=== PATIENT | male | born 1960 | race African-American/Black ===

== ENCOUNTER 2018-09-27 08:37 | Observation (INO) ==
[2018-09-27] MEDS ORDERED: Naloxone 0.4 MG/ML INJ IVP PRN (10:47)
[2018-09-27] MEDS ORDERED: Acetaminophen 325 MG TABLET PO PRN (10:47)
[2018-09-27 11:10] LABS: Basophils % 0.3 %; Eosinophils # 0.1 K/mcL (0.0-0.6); Eosinophils % 1.9 %; Hematocrit 49.6 % (37.5-50.1); Immature Granulocytes % 0.3 % (0-4); Lymphocytes # 0.8 K/mcL (0.6-4.6); Lymphocytes % 13.3 %; Mean Corpuscular HGB Conc 34.3 g/dL (31.6-35.5); Mean Corpuscular Hemoglobin 33.6 pg (28.0-33.3); Mean Platelet Volume 11.7 fL (9.4-12.4); Monocytes # 0.5 K/mcL (0.0-1.3); Monocytes % 7.9 %; Neutrophils # 4.8 K/mcL (1.6-8.9); Platelet Count 172 K/mcL (140-400); Red Blood Count 5.06 M/mcL (4.19-5.50); Red Cell Distribution Width 12.1 % (11.5-14.5); Segmented Neutrophils % 76.3 %
[2018-09-27 12:35] LABS: BUN/Creatinine Ratio 19 (6-26); Blood Urea Nitrogen 26 mg/dL (6-20); Calcium 9.5 mg/dL (8.6-10.3); Carbon Dioxide 28 mEq/L (23-29); Chloride 104 mEq/L (98-107); Glucose 214 mg/dL (70-105); Osmolality,Calculated 303 (280-300); Potassium 3.7 mEq/L (3.5-5.1); Sodium 141 mEq/L (136-145); eGFR For Non-African Americans 55 (> 60)
--- NOTE | 2018-09-27 13:03 | Electrocardiograph Report ---
[address] [address] Test Date: 2018-09-27 Pat Name: Mario Monroy Department: EXAMC6 Room: [facility] Gender: M Reports Analyst: : 1960 Requested By: Radha Valencia Order Number: [id number] Reading MD: Carmella Garduno Measurements Intervals [place] Rate: 123 P: 83 NE: 157 QRS: 106 QRSD: 82 T: 84 QT: 248 QTc: 355 Interpretive Statements Sinus tachycardia Probable left atrial enlargement Right axis deviation RSR' in V1 or V2, probably normal variant Borderline T wave abnormalities Electronically Signed On 09-27-2018 13:01:42 EDT by Carmella Garduno
--- NOTE | 2018-09-27 13:37 | Electrophysiology H & P ---
Date of Encounter: 09/27/18 Time of Encounter: 11:00 Assessment and Plan (1) Encounter for monitoring anti-arrhythmic therapy Current Visit: Yes Status: Acute Per EP: -Admitted for anti-arrythmic intiation with sotalol 80mg BID. -ECG baseline 09/27/[address], HR 123, QT 248/QTc 355ms. -On xarelto for anticoagulation. Denies missed xarelto doses in the past 30 days. -Will start sotalol 80mg BID. -ECGs daily. -Continuous telemetry monitoring. The assessment and plan as outlined above was discussed with the patient and/or family members who expressed understanding and agreement. All questions were answered. (2) A-fib Current Visit: Yes Status: Chronic Per cardiology: -Known persistent a.fib. -PLan for sotalol initiation as above. The assessment and plan as outlined above was discussed with the patient and/or family members who expressed understanding and agreement. All questions were answered. Qualifiers: Atrial fibrillation type: persistent Qualified Code(s): I48.1 - Persistent atrial fibrillation (3) Essential hypertension Current Visit: Yes Status: Chronic Per cardiology: -Known HTN. -ON lisinopril. -Will continue to monitor. The assessment and plan as outlined above was discussed with the patient and/or family members who expressed understanding and agreement. All questions were answered. History of Present Illness Chief complaint: A.fib HPI: Mr. Monroy is a 58 year old male with a relevant past medical history of a.flutter, a.fib s/p ablations at [facility] and [facility], sarcoidosis, HTN, GERD, who was admitted to [facility] for sotalol initiation. Patient denies complaints today. States he feels occasional palpitations/fluttering. None currently. Reports heart rate has been up and down at home. Denies chest pain, shortness of breath, or increased fatigue. Past Med Surg Social Fam HX - Past Medical History Attestation: Yes The following information was validated with the patient. Source: patient, old records reviewed Medical history: atrial fibrillation, GERD, hypertension Additional medical history: sarcoid of lungs Psychiatric history: no psych history - Past Surgical History Surgical History: herniorrhaphy Additional surgical history: ablasions x2 - Social History Smoking Status: Never smoker Alcohol use: rarely Drug use: none - Family History Mother Living Status: Age at : 86 Cause of : stomach cancer, dementia Medications and Allergies Carvedilol [Coreg] 25 mg PO BID 09/27/18 [History] Lisinopril 2.5 mg PO DAILY 09/27/18 [History] Xarelto 20 mg PO QPM 09/27/18 [History] hydroCHLOROthiazide [Hydrochlorothiazide] 25 mg PO DAILY 09/27/18 [History] Allergy/AdvReac Type Severity Reaction Status Date / Time No Known Allergies Allergy Verified 09/27/18 11:15 All Systems Review: The remainder of the systems were reviewed and are negative - Cardiovascular Cardiovascular: as per HPI, palpitations Physical Examination Vital Signs, Last 4 Hours Temp Pulse Resp BP Pulse Ox 09/27/18 11:12 97.6 F 123 20 128/100 96 General: Conversant, No Apparent Distress HEENT: Atraumatic, Normocephaly, Mucus Membranes Moist Neck: No JVD, Normal carotid pulses Cardiac: Reg Rate and Rhythm, Normal S1 and S2, No Murmur Lungs: Normal Breath Sounds, No Wheeze, Rales, Rhonchi Neuro: Alert and responsive, No focal deficits noted Abdomen: Soft, Non-Tender Skin: No rashes noted on visualized skin Musculoskeletal: No Chest Wall Tenderness Extremities: No Clubbing, No Cyanosis, No Edema, Normal Pulses Results 09/27/18 10:55 09/27/18 10:55 Lab Results Active Medications Acetaminophen (Tylenol) 650 mg PO Q6HR PRN PRN Reason: Mild Pain/Fever Stop: 03/29/19 10:48 Carvedilol (Coreg) 25 mg PO BID [facility]; Protocol Stop: 03/29/19 21:01 Hydrochlorothiazide (Hydrochlorothiazide) 25 mg PO DAILY [facility]; Protocol Stop: 03/30/19 09:01 Naloxone HCl (Narcan) 0.4 mg IVP Q2MPRN PRN PRN Reason: SEE COMMENTS Stop: 03/29/19 10:48 Non-Formulary Medication (Lisinopril) 2.5 mg PO DAILY [facility] Stop: 03/30/19 09:01 Non-Formulary Medication (Xarelto) 20 mg PO QPM [facility] Stop: 03/29/19 18:01 Sotalol HCl (Betapace) 80 mg PO Q12H [facility] Stop: 03/29/19 13:33 Laboratory Tests 09/27/18 09/27/18 10:55 10:55 Hgb 17.0 H Creatinine 1.34 H - EKG Interpretation EKG results cardiology: personally reviewed (ECG with ST, HR 123. QT 248, QTc 355ms.) - VTE Reasons for not Prescribing Prophylaxis: Not indicated-Anticoagulated or INR therapeutic
[2018-09-27] MEDS: *HR* Rivaroxaban 10 MG TABLET PO SCH (18:02)
[2018-09-28] MEDS: hydroCHLOROthiazide 25 MG TABLET PO SCH (08:03)
--- NOTE | 2018-09-28 09:35 | Electrocardiograph Report ---
[place] [address] Test Date: 2018-09-27 Pat Name: Mario Monroy Department: EXAMC6 Room: 3B Gender: M Cad Drafter: : 1960 Requested By: Juan A Cheatham Order Number: [id number] Reading MD: Karlo Borja Measurements Intervals [place] Rate: 114 P: [place]: QRS: 95 QRSD: 82 T: 239 QT: 364 QTc: 491 Interpretive Statements Atrial flutter RSR' in V1 or V2, probably normal variant Electronically Signed On 09-28-2018 9:34:20 EDT by Karlo Borja
--- NOTE | 2018-09-28 09:36 | Electrocardiograph Report ---
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
--- NOTE | 2018-09-28 09:42 | Electrocardiograph Report ---
[address] [place], [place] [address] Test Date: 2018-09-28 Pat Name: Mario Monroy Department: 113 Room: 3B Gender: M Bundle Sorter: : 1960 Requested By: Radha Valencia Order Number: [id number] Reading MD: Karlo Borja Measurements Intervals [place] Rate: 118 P: OR: 0 QRS: 108 QRSD: 81 T: 73 QT: 227 QTc: 297 Interpretive Statements atrial flutter Electronically Signed On 09-28-2018 9:41:10 EDT by Karlo Borja
--- NOTE | 2018-09-28 11:50 | Electrophysiology ProgressNote ---
Date of Encounter: 09/28/18 Time of Encounter: 10:00 Assessment and Plan (1) Encounter for monitoring anti-arrhythmic therapy Current Visit: Yes Status: Acute Per EP: -Admitted for anti-arrythmic intiation with sotalol 80mg BID. -ECG baseline 09/27/[address], HR 123, QT 248/QTc 355ms. -ECG 09/28/18 s/p 2 total doses with aflutter/tachycardia, HR 117. QT 227/QTc 297ms. -Reports some mild diaphoresis after sotalol. -On xarelto for anticoagulation. Denies missed xarelto doses in the past 30 days. -Average HR previous 12 hours noted to be 117. -Discussed and reviewed with , continue sotalol Continue to monitor symptoms closely. -ECGs daily. -Continuous telemetry monitoring. -Will make NPO after midnight for possible DCCV in am. The assessment and plan as outlined above was discussed with the patient and/or family members who expressed understanding and agreement. All questions were answered. (2) A-fib Current Visit: Yes Status: Chronic Per cardiology: -Known persistent a.fib. -PLan for sotalol initiation as above. The assessment and plan as outlined above was discussed with the patient and/or family members who expressed understanding and agreement. All questions were answered. Qualifiers: Atrial fibrillation type: persistent Qualified Code(s): I48.1 - Persistent atrial fibrillation (3) Essential hypertension Current Visit: Yes Status: Chronic Per cardiology: -Known HTN. -ON lisinopril. -Will continue to monitor. The assessment and plan as outlined above was discussed with the patient and/or family members who expressed understanding and agreement. All questions were answered. Discussion w patient/family: The assessment and plan as outlined above was discussed with the patient who expressed understanding and agreement. All questions were answered. Thank you for involving us in the care of your patient. Please call with any questions. Discussed and reviewed with . Subjective Principal diagnosis: sotalol initiation, a.fib. Interval history: Pateint states shortly after sotalol doses, became mildly diaphoretic. States lasts for a few minutes then resolves. States right now, feels fine. Denies current complaints. Objective Vital Signs, Last 4 Hours Temp Pulse Resp BP Pulse Ox 09/28/18 11:00 97.8 F 118 14 133/87 98 General: Conversant, No Apparent Distress HEENT: Atraumatic, Normocephaly, Mucus Membranes Moist Neck: No JVD, Normal carotid pulses Cardiac: Normal S1 and S2, No Murmur, Other (Tachycardic) Lungs: Normal Breath Sounds, No Wheeze, Rales, Rhonchi Neuro: Alert and responsive, No focal deficits noted Abdomen: Soft, Non-Tender Skin: No rashes noted on visualized skin Musculoskeletal: No Chest Wall Tenderness Extremities: No Clubbing, No Cyanosis, No Edema, Normal Pulses Results 09/27/18 10:55 09/27/18 10:55 Lab Results Active Medications Acetaminophen (Tylenol) 650 mg PO Q6HR PRN PRN Reason: Mild Pain/Fever Stop: 03/29/19 10:48 Carvedilol (Coreg) 25 mg PO BIDWM [facility]; Protocol Stop: 03/29/19 17:01 Last Admin: 09/28/18 08:04 Dose: 25 mg Documented by: Hydrochlorothiazide (Hydrochlorothiazide) 25 mg PO DAILY [facility]; Protocol Stop: 03/30/19 09:01 Last Admin: 09/28/18 08:03 Dose: 25 mg Documented by: Lisinopril (Zestril) 2.5 mg PO DAILY [facility] Stop: 03/30/19 09:01 Last Admin: 09/28/18 08:03 Dose: 2.5 mg Documented by: Naloxone HCl (Narcan) 0.4 mg IVP Q2MPRN PRN PRN Reason: SEE COMMENTS Stop: 03/29/19 10:48 Rivaroxaban (Xarelto) 20 mg PO QPM [facility] Stop: 03/29/19 18:01 Last Admin: 09/27/18 18:02 Dose: 20 mg Documented by: Sotalol HCl (Betapace) 80 mg PO Q12H [facility] Stop: 03/29/19 13:33 Last Admin: 09/28/18 01:38 Dose: 80 mg Documented by: - Imaging and Cardiology Chest Xray: report reviewed Echo: report reviewed - EKG Interpretation EKG results cardiology: other (Telemetry reveiwed with average HR previous 12 hours noted to be 117, a.fib.) - VTE Reasons for not Prescribing Prophylaxis: Not indicated-Anticoagulated or INR therapeutic Consult Discharge Plan - Plan Referrals: Angel Duran MD [Primary Care Provider] -
[2018-09-28] MEDS ORDERED: Melatonin 3 MG TABLET PO PRN (11:59)
[2018-09-28] MEDS: *HR* Rivaroxaban 10 MG TABLET PO SCH (17:05)
[2018-09-29] MEDS: hydroCHLOROthiazide 25 MG TABLET PO SCH (09:23)
--- NOTE | 2018-09-29 10:20 | Event Note ---
Date of Encounter: 09/29/18 Time of Encounter: 08:30 - Cardiology Event Note Patient admitted for sotalol initiation. Currently s/p 4 total doses. ECG today with stable QTc. Plan for DCCV today. On xarelto, denies any missed doses of anticoagulation in the past 30 days. Risks versus benefits of DCCV explained to patient, who states understanding and agreeable to proceed. Further recs pending DCCV.
[2018-09-29] MEDS ORDERED: *HR* FentaNYL (PF) 100 MCG/2 ML VIAL IVP PRN (11:54)
[2018-09-29] MEDS ORDERED: 0.9 % Sodium Chloride 500 ML IVC ONE (11:55)
--- NOTE | 2018-09-29 12:28 | Electrocardiograph Report ---
[address] [address] Test Date: 2018-09-29 Pat Name: Mario Monroy Department: 113 Room: 3B Gender: M Inspector Rough Castings: : 1960 Requested By: Radha Valencia Order Number: [id number] Reading MD: Juan A Cheatham Measurements Intervals [place] Rate: 113 P: 79 [place]: 156 QRS: 103 QRSD: 201 T: 88 QT: 409 QTc: 476 Interpretive Statements SINUS TACHYCARDIA RIGHT AXIS DEVIATION INTRAVENTRICULAR CONDUCTION DELAY Electronically Signed On 09-29-2018 12:27:00 EDT by Juan A Cheatham
[2018-09-29] MEDS: *HR* Midazolam HCl 5 MG/5 ML VIAL IVP PRN ×2 (12:45→12:50)
[2018-09-29 13:55] VITALS: BP 114/82
--- NOTE | 2018-09-29 13:55 | Discharge Summary ---
- NOTES TO OUTPATIENT PROVIDER Notes to Outpatient Provider: Admitted for sotalol initiation. S/p cardioversion. Orders not resulted at time of discharge: Pending orders 09/29/18 11:17 EKG [ECG 12 lead ECG] [ECG] Stat 09/30/18 06:00 ECG 12 lead ECG [ECG] AM 0600 Date of Encounter: 09/29/18 Time of Encounter: 13:51 - Discharge Diagnosis (1) Encounter for monitoring anti-arrhythmic therapy Priority: Primary Status: Acute Comments: Admitted for sotalol initiation (2) A-fib Priority: Secondary Status: Chronic Comments: Known a.fib Qualifiers: Atrial fibrillation type: persistent Qualified Code(s): I48.1 - Persistent atrial fibrillation (3) Essential hypertension Priority: Secondary Status: Chronic Comments: Known HTN - Hospital Course Hospital course: Mr. Monroy is a 58 year old male who was admitted to [facility] for sotalol intiation. Patient is currently s/p 4 total doses, QTc has remained stable. Patient is currently s/p DCCV with successful conversion to SR. ECG post cardioversion reviewed with and noted to be SR, HR 98, frequent PACs noted. HR now controlled in SR. Patient is on xarelto for anticoagulation. Patient had reported diaphoresis after first 2 doses of sotalol, however none since. Patient is being prepped for conditional discharge home pending 5th dose of sotalol and ECG. Patient will follow with [facility], follow up set. Patient educated to return to ER for HR sustaining above 100, states understanding. ERX sent to patient's pharmacy. - Time Spent with Patient Total time spent providing and/or coordinating discharge services: Less than 30 minutes - Discharge Medications Prescriptions: Continued Carvedilol [Coreg] 25 mg PO BID Lisinopril 2.5 mg PO DAILY hydroCHLOROthiazide [Hydrochlorothiazide] 25 mg PO DAILY Rivaroxaban [Xarelto] 20 mg PO QPM Sotalol [Betapace] 80 mg PO BID #180 tablet Home Medications: Carvedilol [Coreg] 25 mg PO BID 09/27/18 [History] Lisinopril 2.5 mg PO DAILY 09/27/18 [History] Rivaroxaban [Xarelto] 20 mg PO QPM 09/27/18 [History] hydroCHLOROthiazide [Hydrochlorothiazide] 25 mg PO DAILY 09/27/18 [History] Sotalol [Betapace] 80 mg PO BID #180 tablet 09/29/18 [Rx] Allergies/Adverse Reactions: Allergy/AdvReac Type Severity Reaction Status Date / Time No Known Allergies Allergy Verified 09/27/18 11:15 Date of admission: 09/27/18 10:39 Primary care physician: Angel Duran MD Discharging clinician: Radha Valencia Anticipated date of discharge: 09/29/18 Physical Examination Vital Signs, Last 4 Hours Temp Pulse Resp BP Pulse Ox 09/29/18 12:23 97.8 F 117 20 138/123 94 General: Conversant, No Apparent Distress HEENT: Atraumatic, Normocephaly, Mucus Membranes Moist Neck: No JVD, Normal carotid pulses Cardiac: Reg Rate and Rhythm, Normal S1 and S2, No Murmur Lungs: Normal Breath Sounds, No Wheeze, Rales, Rhonchi Neuro: Alert and responsive, No focal deficits noted Abdomen: Soft, Non-Tender Skin: No rashes noted on visualized skin Musculoskeletal: No Chest Wall Tenderness Extremities: No Clubbing, No Cyanosis, No Edema, Normal Pulses - Patient Status Disposition: Home, Self-Care Condition: Good Functional capacity at discharge: independent ambulation Overall status at discharge: patient is progressing back to baseline - Discharge Instructions Follow Up With: Angel Duran MD [Primary Care Provider] - 10/04/18 1:30 pm - Diet and Activity Activity: increase activity as tolerated Diet: advance to your usual diet - VTE Reasons for not Prescribing Prophylaxis: Not indicated-Anticoagulated or INR therapeutic
--- NOTE | 2018-09-29 14:08 | Electrocardiograph Report ---
[address] [address] Test Date: 2018-09-29 Pat Name: Mario Monroy Department: 101 Room: 3B Gender: M Breaker Operator: RUTH : 1960 Requested By: David Bahena Order Number: [id number] Reading MD: Juan A Cheatham Measurements Intervals [place] Rate: 93 P: [place]: 0 QRS: 85 QRSD: 90 T: 94 QT: 343 QTc: 394 Interpretive Statements ATRIAL FIBRILLATION WITH ABERRANT CONDUCTION OR VENTRICULAR PREMATURE COMPLEXES NONSPECIFIC T-WAVE ABNORMALITY Electronically Signed On 09-29-2018 14:06:22 EDT by Juan A Cheatham
--- NOTE | 2018-09-30 11:47 | Electrocardiograph Report ---
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
--- NOTE | 2018-09-30 14:23 | Electrocardiograph Report ---
[address] [address] Test Date: 2018-09-29 Pat Name: Mario Monroy Department: 113 Room: 3B Gender: M Central Supply Nurse: : 1960 Requested By: Radha Valencia Order Number: [id number] Reading MD: David Bahena Measurements Intervals [place] Rate: 96 P: [place]: 0 QRS: -31 QRSD: 86 T: 210 QT: 379 QTc: 433 Interpretive Statements Possibly sinus rhythm with premature atrial and ventricular complexes Electronically Signed On 09-30-2018 14:22:31 EDT by David Bahena
== END 2018-09-29 15:54 | disposition home or self-care (01) ==
LOC: 2SOUTHHOLD → 3BNU 18:49
PROVIDERS: ADMIT Internal Medicine Clinical Cardiac Electrophysiology; ATTEND Internal Medicine Clinical Cardiac Electrophysiology

== ENCOUNTER 2018-11-14 10:00 | Observation (INO) ==
--- NOTE | 2018-11-14 10:50 | History & Physical Report ---
Date of Encounter: 11/14/18 Time of Encounter: 10:48 24 Hour HP Update - Instructions Instructions: If the History and Physical is less than 30 days old and was completed prior to A.M. admission and or procedure and has NOT been updated on calendar day of procedure please complete this update prior to performing procedure. - Update Patient reports changes in Medical Condition: No Changes in examination, assessment, or condition: No Changes in Medication: No - Attending Attestation Please refer to eCW encounter dated 11/01/[address] Joe Garduno as full H&P. Pt is a 58-year-old male with PMH of A-Fib s/p ablations, previously on Sotalol and Flecainide that presents today for Rythmol initiation. Anticoagulated on Xarelto with no missed doses in the past 30 days. Will initiate Rythmol 150mg [id number]. Will obtain baseline labs and ECG. Will need daily ECGs while inpt and inpt monitoring x 5 doses. Will discuss and review with Dr. Joe Garduno.
[2018-11-14 14:22] LABS: Basophils % 0.4 %; Eosinophils # 0.1 K/mcL (0.0-0.6); Eosinophils % 1.6 %; Hematocrit 49.9 % (37.5-50.1); Hemoglobin 16.7 g/dL (12.9-16.9); Immature Granulocytes % 0.3 % (0-4); Lymphocytes % 15.1 %; Mean Corpuscular HGB Conc 33.5 g/dL (31.6-35.5); Mean Corpuscular Hemoglobin 34.2 pg (28.0-33.3); Mean Corpuscular Volume 102.3 fL (83.0-100.0); Monocytes # 0.6 K/mcL (0.0-1.3); Monocytes % 8.1 %; Neutrophils # 5.1 K/mcL (1.6-8.9); Nucleated Red Blood Cells 0.3 /100 WBC (0); Platelet Count 174 K/mcL (140-400); Red Blood Count 4.88 M/mcL (4.19-5.50); Red Cell Distribution Width 12.7 % (11.5-14.5); Segmented Neutrophils % 74.5 %; White Blood Count 6.8 K/mcL (4.3-11.1)
[2018-11-14 14:35] LABS: BUN/Creatinine Ratio 21 (6-26); Blood Urea Nitrogen 29 mg/dL (6-20); Calcium 9.3 mg/dL (8.6-10.3); Carbon Dioxide 27 mEq/L (23-29); Chloride 104 mEq/L (98-107); Glucose 209 mg/dL (70-105); Magnesium 2.1 mg/dL (1.6-2.6); Osmolality,Calculated 306 (280-300); Potassium 3.5 mEq/L (3.5-5.1); Sodium 142 mEq/L (136-145); eGFR For African Americans > 60 (> 60); eGFR For Non-African Americans 53 (> 60)
[2018-11-14] MEDS: *HR* Rivaroxaban 10 MG TABLET PO SCH (17:18)
[2018-11-14] MEDS ORDERED: Perflutren Lipid Microsphere 1.3 ML in 0.9 % Sodium Chloride 8.7 ML IVP ONE (22:42)
[2018-11-15] MEDS: hydroCHLOROthiazide 25 MG TABLET PO SCH (08:02)
--- NOTE | 2018-11-15 12:32 | Electrophysiology ProgressNote ---
Date of Encounter: 11/15/18 Time of Encounter: 12:30 Assessment and Plan (1) PAF (paroxysmal atrial fibrillation) Current Visit: Yes Status: Acute Hx of A-Fib s/p ablations, previously on Sotalol and Flecainide that presents for Rythmol initiation. Anticoagulated on Xarelto with no missed doses in the past 30 days. Started Rythmol 150mg Z3facse on 11/14. Stopped after 3 doses d/t newly reduced EF on TTE. Continue Coreg 25mg BID. Discussed and reviewed with Dr. Joe Garduno. Will plan to start PO Amiodarone 200mg BID 11/16 AM. (2) Acute systolic CHF (congestive heart failure), NYHA class 2 Current Visit: Yes Status: Acute EF 55% in 2013. TTE now LVEF 30-35%. Severe global LV systolic dysfunction. Moderately dilated LV. Normal RV. Severely dilated LA. Moderate MR. Moderate TR. Moderate phtn. Estimated RVSP is 55 mmHg. Small pericardial effusion present, no evidence of tamponade. Moderate pleural effusion. Admits to increase BLE edema over recent weeks. Will obtain CXR. Episodes of hypoxia noted at bedside. Will give dose of IV Lasix 20mg once. Creatinine 1.39--monitor closely. Recommend strict I/Os, Na and fluid restriction, daily weights. (3) Cardiomyopathy Current Visit: Yes Status: Acute EF 30-35%, global. EF preserved in 2013. ICMP vs NICMP (tachycardia induced). Continue BB and ACEi. Discussed with Dr. Joe Garduno. Suspect tachycardia induced. Plan to start amio as above in attempt to restore SR. Will recheck TTE as outpt and if EF does not recover, will then consider outpt ischemic eval (stress test vs LHC). Qualifiers: Cardiomyopathy type: unspecified Qualified Code(s): I42.9 - Cardiomyopathy, unspecified Discussion w patient/family: The assessment and plan as outlined above was discussed with the patient and/or family members who expressed understanding and agreement. All questions were answered. Thank you for involving us in the care of your patient. Please call with any questions. I will discuss all the above with Dr. Joe Garduno and make changes as necessary. Subjective Principal diagnosis: PAF, CHF Interval history: Reports BLE edema persists. Denies chest pain. Currently sinus tach at bedside. Objective Vital Signs, Last 4 Hours Temp Pulse Resp BP Pulse Ox 11/15/18 11:23 97.6 F 113 16 109/80 98 Vital Signs Temp Pulse Resp BP Pulse Ox 11/15/18 11:23 97.6 F 113 16 109/80 98 11/15/18 07:04 97.4 F L 118 16 129/102 96 11/15/18 03:10 97.9 F 130 16 134/97 91 11/14/18 23:40 97.4 F L 131 21 126/100 94 11/14/18 13:50 97.7 F 104 18 122/89 92 Intake and Output 11/14/18 11/15/18 11/15/18 23:59 07:59 15:59 Intake Total 240 / 240 Balance 240 / 240 Intake: Oral 240 / 240 Other: Meal Breakfast Percent of Meal Consumed 85% # Voids 1 Weight 116.8 kg Patient Weight 11/15/18 23:59 Weight 116.8 kg General: Conversant, No Apparent Distress HEENT: Atraumatic, Normocephaly, Mucus Membranes Moist Neck: Normal carotid pulses Cardiac: Reg Rate and Rhythm, Normal S1 and S2, No Murmur Lungs: Other (diminished) Neuro: Alert and responsive, No focal deficits noted Abdomen: Soft, Non-Tender Skin: No rashes noted on visualized skin Musculoskeletal: No Chest Wall Tenderness Extremities: Other (2+ BLE edema) Results 11/14/18 13:28 11/14/18 13:28 Lab Results 11/14/18 11/14/18 13:28 13:28 WBC 6.8 Hgb 16.7 Hct 49.9 Plt Count 174 Sodium 142 Potassium 3.5 Chloride 104 Carbon Dioxide 27 BUN 29 H Creatinine 1.39 H Glucose 209 H Calcium 9.3 Magnesium 2.1 Short CBC 11/14/18 Range/Units 13:28 WBC 6.8 (4.3-11.1) K/mcL Hgb 16.7 (12.9-16.9) g/dL Hct 49.9 (37.5-50.1) % Plt Count 174 (140-400) K/mcL Neutrophils # 5.1 (1.6-8.9) K/mcL BMP 11/14/18 Range/Units 13:28 Sodium 142 (136-145) mEq/L Potassium 3.5 (3.5-5.1) mEq/L Chloride 104 (98-107) mEq/L Carbon Dioxide 27 (23-29) mEq/L BUN 29 H (6-20) mg/dL Creatinine 1.39 H (0.70-1.30) mg/dL Glucose 209 H (70-105) mg/dL Calcium 9.3 (8.6-10.3) mg/dL Impressions Echocardiogram 11/14/18 13:16 Impressions: LVEF 30-35%.Severe global left ventricular systolic dysfunction. Moderately dilated left ventricle. Indeterminate diastolic function. Normal right ventricular structure and function. Severely dilated left atrium. Moderate mitral regurgitation. Moderate tricuspid regurgitation. Moderate pulmonary hypertension.Estimated RVSP is 55 mmHg. There is a small pericardial effusion present.There is no echocardiographic evidence of tamponade. Moderate pleural effusion. Left Ventricular Wall Motion: Rest Echo Findings The apex, apical inferior, mid inferior, basal inferior, apical anterior, mid anterior, basal anterior, apical septal, mid inferior septal, basal inferior septal, apical lateral, mid anterior lateral, basal anterior lateral, mid anterior septal, mid inferior lateral, basal anterior septal and basal inferior lateral berrios were hypokinetic. Findings: Study Quality * Technically adequate exam. ECG Findings * Atrial flutter. Left Ventricle * LVEF 30-35%.Severe global left ventricular systolic dysfunction. * Moderately dilated left ventricle. * Mild concentric left ventricular hypertrophy. * * Indeterminate diastolic function. * Definity echo contrast was used. * There is no LV thrombus. Right Ventricle * Normal right ventricular structure and function. Left Atrium * Severely dilated left atrium. Right Atrium * Moderately dilated right atrium. Aortic Valve * Aortic valve not well visualized. * No aortic regurgitation. * No aortic stenosis. * Trileaflet aortic valve. Mitral Valve * Moderate mitral regurgitation. * Mildly thickened mitral valve leaflets. * No mitral stenosis. Tricuspid Valve * Moderate tricuspid regurgitation. * * Moderate pulmonary hypertension.Estimated RVSP is 55 mmHg. * Estimated RA pressure is 5 mmHg. Pulmonic Valve * Pulmonic valve is not well visualized. Aorta * Normally sized aortic root. Pericardium * There is a small pericardial effusion present.There is no echocardiographic evidence of tamponade. * IVC * Normal IVC dimensions. Pulmonary Artery * Pulmonary artery not well visualized. Pleural Effusion * Moderate pleural effusion. Active Medications Carvedilol (Coreg) 25 mg PO BID [facility]; Protocol Stop: 05/16/19 21:01 Last Admin: 07/16/19 08:02 Dose: 25 mg Documented by: Hydrochlorothiazide (Hydrochlorothiazide) 25 mg PO DAILY [facility]; Protocol Stop: 05/17/19 09:01 Last Admin: 11/15/18 08:02 Dose: 25 mg Documented by: Lisinopril (Zestril) 2.5 mg PO DAILY [facility] Stop: 05/17/19 09:01 Last Admin: 11/15/18 08:02 Dose: 2.5 mg Documented by: Rivaroxaban (Xarelto) 20 mg PO QPM [facility] Stop: 05/16/19 18:01 Last Admin: 11/14/18 17:18 Dose: 20 mg Documented by: - Imaging and Cardiology Echo: report reviewed Consult Discharge Plan - Plan Referrals: NONE,PCP [Primary Care Provider] -
[2018-11-15] MEDS ORDERED: Furosemide 20 MG/2 ML VIAL IVP ONE (13:26)
[2018-11-15] MEDS ORDERED: *HR* Metoprolol 5 MG/5 ML VIAL IVP PRN (17:50)
[2018-11-15] MEDS: *HR* Rivaroxaban 10 MG TABLET PO SCH (18:24)
[2018-11-16 07:03] LABS: Calcium 9.6 mg/dL (8.6-10.3); Potassium 3.7 mEq/L (3.5-5.1)
--- NOTE | 2018-11-16 07:52 | Electrocardiograph Report ---
[place] [employer] Test Date: 2018-11-14 Pat Name: Mario Monroy Department: [id number] Room: 2NE29 Gender: M Csr Retail: : 1960 Requested By: Romel Fritz Order Number: [id number] Reading MD: Sofía Montiel Measurements Intervals [place] Rate: 110 P: CO: QRS: 87 QRSD: 88 T: -10 QT: 361 QTc: 489 Interpretive Statements Atrial flutter RSR' in V1 or V2, probably normal variant Nonspecific T abnormalities, lateral leads Borderline prolonged QT interval Electronically Signed On 11-16-2018 7:51:19 EDT by Sofía Montiel
[2018-11-16] MEDS: hydroCHLOROthiazide 25 MG TABLET PO SCH (08:49)
[2018-11-16] MEDS: *HR* Amiodarone 200 MG TABLET PO SCH ×2 (08:49→20:14)
--- NOTE | 2018-11-16 09:48 | Electrophysiology ProgressNote ---
Date of Encounter: 11/16/18 Time of Encounter: 09:45 Assessment and Plan (1) PAF (paroxysmal atrial fibrillation) Current Visit: Yes Status: Acute Hx of A-Fib s/p ablations, previously on Sotalol and Flecainide that presented for Rythmol initiation. Anticoagulated on Xarelto with no missed doses in the past 30 days. Started Rythmol 150mg [id number] on 11/14. Stopped after 3 doses d/t newly reduced EF on TTE. Continue Coreg 25mg BID. Discussed and reviewed with Dr. Joe Garduno. Started PO Amiodarone 200mg BID 7 AM in attempt to restore SR. Reviewed rhythm--appears sinus tach, but is likely atypical atrial flutter. NPO after midnight for DCCV tomorrow. (2) Acute systolic CHF (congestive heart failure), NYHA class 2 Current Visit: Yes Status: Acute EF 55% in 2013. TTE now LVEF 30-35%. Severe global LV systolic dysfunction. Moderately dilated LV. Normal RV. Severely dilated LA. Moderate MR. Moderate TR. Moderate phtn. Estimated RVSP is 55 mmHg. Small pericardial effusion present, no evidence of tamponade. Moderate pleural effusion. Admits to increase BLE edema over recent weeks. CXR Acute congestive heart failure with mild bilateral effusions and basilar atelectasis. Gave one dose of IV Lasix 20mg. Creatinine 1.59--mildly worsened. Will discuss and review with Dr. Joe Garduno. Recommend strict I/Os, Na and fluid restriction, daily weights. (3) Cardiomyopathy Current Visit: Yes Status: Acute EF 30-35%, global. EF preserved in 2013. ICMP vs NICMP (tachycardia induced). Continue BB and ACEi. Discussed with Dr. Joe Garduno. Suspect tachycardia induced. Plan to start amio as above in attempt to restore SR. Will recheck TTE as outpt and if EF does not recover, will then consider outpt ischemic eval (stress test vs LHC). Qualifiers: Cardiomyopathy type: unspecified Qualified Code(s): I42.9 - Cardiomyopathy, unspecified Discussion w patient/family: The assessment and plan as outlined above was discussed with the patient and/or family members who expressed understanding and agreement. All questions were answered. Thank you for involving us in the care of your patient. Please call with any questions. I will discuss all the above with Dr. Joe Garduno and make changes as necessary. Subjective Principal diagnosis: PAF, CHF Interval history: Reports BLE edema is mildly improved. Denies chest pain. Objective Vital Signs, Last 4 Hours Temp Pulse Resp BP Pulse Ox 11/16/18 06:54 97.9 F 131 16 116/94 96 Vital Signs Temp Pulse Resp BP Pulse Ox 11/16/18 06:54 97.9 F 131 16 116/94 96 11/16/18 04:12 97.8 F 130 16 112/93 94 11/15/18 23:48 97.6 F 124 17 116/97 93 11/15/18 21:04 91 11/15/18 18:42 97.7 F 132 19 116/97 96 11/15/18 11:23 97.6 F 113 16 109/80 98 Intake and Output 11/15/18 11/16/18 11/16/18 23:59 07:59 15:59 Intake Total 0 / 240 0 / 0 Output Total 700 / 700 0 / 0 Balance -700 / -460 0 / 0 Intake: Oral 0 / 240 0 / 0 Output: Urine 700 / 700 0 / 0 Other: Weight 116.4 kg 116.4 kg Patient Weight 11/16/18 23:59 Weight 116.4 kg General: Conversant, No Apparent Distress HEENT: Atraumatic, Normocephaly, Mucus Membranes Moist Neck: No JVD, Normal carotid pulses Cardiac: Reg Rate and Rhythm, Normal S1 and S2, No Murmur Lungs: Normal Breath Sounds, No Wheeze, Rales, Rhonchi Neuro: Alert and responsive, No focal deficits noted Abdomen: Soft, Non-Tender Skin: No rashes noted on visualized skin Musculoskeletal: No Chest Wall Tenderness Extremities: No Clubbing, No Cyanosis, No Edema, Normal Pulses Results 11/14/18 13:28 11/16/18 05:40 Lab Results 11/16/18 11/16/18 05:40 05:40 Sodium 144 Potassium 3.7 Chloride 103 Carbon Dioxide 28 BUN 30 H Creatinine 1.59 H Glucose 159 H Calcium 9.6 TSH 1.509 BMP 11/16/18 Range/Units 05:40 Sodium 144 (136-145) mEq/L Potassium 3.7 (3.5-5.1) mEq/L Chloride 103 (98-107) mEq/L Carbon Dioxide 28 (23-29) mEq/L BUN 30 H (6-20) mg/dL Creatinine 1.59 H (0.70-1.30) mg/dL Glucose 159 H (70-105) mg/dL Calcium 9.6 (8.6-10.3) mg/dL Impressions Echocardiogram 11/14/18 13:16 Impressions: LVEF 30-35%.Severe global left ventricular systolic dysfunction. Moderately dilated left ventricle. Indeterminate diastolic function. Normal right ventricular structure and function. Severely dilated left atrium. Moderate mitral regurgitation. Moderate tricuspid regurgitation. Moderate pulmonary hypertension.Estimated RVSP is 55 mmHg. There is a small pericardial effusion present.There is no echocardiographic evidence of tamponade. Moderate pleural effusion. Left Ventricular Wall Motion: Rest Echo Findings The apex, apical inferior, mid inferior, basal inferior, apical anterior, mid anterior, basal anterior, apical septal, mid inferior septal, basal inferior septal, apical lateral, mid anterior lateral, basal anterior lateral, mid anterior septal, mid inferior lateral, basal anterior septal and basal inferior lateral berrios were hypokinetic. Findings: Study Quality * Technically adequate exam. ECG Findings * Atrial flutter. Left Ventricle * LVEF 30-35%.Severe global left ventricular systolic dysfunction. * Moderately dilated left ventricle. * Mild concentric left ventricular hypertrophy. * * Indeterminate diastolic function. * Definity echo contrast was used. * There is no LV thrombus. Right Ventricle * Normal right ventricular structure and function. Left Atrium * Severely dilated left atrium. Right Atrium * Moderately dilated right atrium. Aortic Valve * Aortic valve not well visualized. * No aortic regurgitation. * No aortic stenosis. * Trileaflet aortic valve. Mitral Valve * Moderate mitral regurgitation. * Mildly thickened mitral valve leaflets. * No mitral stenosis. Tricuspid Valve * Moderate tricuspid regurgitation. * * Moderate pulmonary hypertension.Estimated RVSP is 55 mmHg. * Estimated RA pressure is 5 mmHg. Pulmonic Valve * Pulmonic valve is not well visualized. Aorta * Normally sized aortic root. Pericardium * There is a small pericardial effusion present.There is no echocardiographic evidence of tamponade. * IVC * Normal IVC dimensions. Pulmonary Artery * Pulmonary artery not well visualized. Pleural Effusion * Moderate pleural effusion. Chest X-Ray 11/15/18 12:27 IMPRESSION: Acute congestive heart failure with mild bilateral effusions and basilar atelectasis. D/ / 11/15/2018 13:43:41 Kyle Fournier MD / [email or web address] Interpreting Provider: Kyle Fournier MD Active Medications Amiodarone HCl (Cordarone) 200 mg PO BID [facility] Stop: 05/18/19 09:01 Last Admin: 11/16/18 08:49 Dose: 200 mg Documented by: Carvedilol (Coreg) 25 mg PO BID [facility]; Protocol Stop: 05/16/19 21:01 Last Admin: 11/16/18 08:49 Dose: 25 mg Documented by: Hydrochlorothiazide (Hydrochlorothiazide) 25 mg PO DAILY [facility]; Protocol Stop: 05/17/19 09:01 Last Admin: 11/16/18 08:49 Dose: 25 mg Documented by: Lisinopril (Zestril) 2.5 mg PO DAILY [facility] Stop: 05/17/19 09:01 Last Admin: 11/16/18 08:49 Dose: 2.5 mg Documented by: Metoprolol Tartrate (Lopressor) 5 mg IVP Q6HR PRN PRN Reason: Tachyarrhythmias Stop: 05/17/19 17:51 Last Admin: 11/16/18 01:22 Dose: 5 mg Documented by: Rivaroxaban (Xarelto) 20 mg PO QPM [facility] Stop: 05/16/19 18:01 Last Admin: 11/15/18 18:24 Dose: 20 mg Documented by: - Imaging and Cardiology Echo: report reviewed - EKG Interpretation EKG results cardiology: other (12 hr tele AVG HR 121) Consult Discharge Plan - Plan Referrals: NONE,PCP [Primary Care Provider] -
[2018-11-16] MEDS: *HR* Rivaroxaban 10 MG TABLET PO SCH (17:19)
[2018-11-17 06:41] LABS: Calcium 9.7 mg/dL (8.6-10.3); Potassium 3.9 mEq/L (3.5-5.1)
[2018-11-17] MEDS: *HR* Amiodarone 200 MG TABLET PO SCH (08:34)
[2018-11-17] MEDS ORDERED: Furosemide 20 MG TABLET PO SCH (09:00)
--- NOTE | 2018-11-17 11:35 | Pre-Sedation Evaluation ---
Pre-sedation evaluation - Pre-sedation checklist Date of procedure: 11/17/18 Procedure: CARDIOVERSION Recent Vitals: Last Vital Signs Temp 97.6 F 11/17/18 08:00 Pulse 126 11/17/18 08:00 Resp 20 11/17/18 08:00 BP 124/97 11/17/18 08:00 Pulse Ox 98 11/17/18 08:00 H&P (including ROS) documented in medical record: Yes Previous reaction to sedatives/anesthetics: No Dietary Status: NPO after Midnight Airway Assessment: Patient can open mouth completely, TMJ function normal, Micrognathia (under-bite, receding chin) absent Dentition: No loose teeth or bridges, full dentition Possible difficult airway: No ASA Classification *see protocol: CLASS II-Mild systemic disease Plan of Care: Pt appropriate candidate for procedure/moderate/conscious sedation, Risks/benefits of procedure/sedation discussed w/ patient/family
[2018-11-17] MEDS ORDERED: *HR* Midazolam HCl 5 MG/5 ML VIAL IVP ONE (11:37)
[2018-11-17] MEDS ORDERED: *HR* FentaNYL (PF) 100 MCG/2 ML VIAL ONE (11:37)
[2018-11-17] MEDS ORDERED: 0.9 % Sodium Chloride 500 ML ONE (11:37)
--- NOTE | 2018-11-17 13:01 | Discharge Summary ---
Orders not resulted at time of discharge: Pending orders 11/15/18 06:00 EKG [ECG 12 lead ECG] [ECG] [place] [address]/16/18 06:00 EKG [ECG 12 lead ECG] [ECG] AM 0600 11/17/18 11:00 CL Cardioversion [CL] Routine Date of Encounter: 11/17/18 Time of Encounter: 13:01 - Discharge Diagnosis (1) PAF (paroxysmal atrial fibrillation) Priority: Primary Status: Acute (2) Acute systolic CHF (congestive heart failure), NYHA class 2 Priority: Secondary Status: Acute (3) Cardiomyopathy Priority: Secondary Status: Acute Qualifiers: Cardiomyopathy type: unspecified Qualified Code(s): I42.9 - Cardiomyopathy, unspecified - Hospital Course Hospital course: Mr. Monroy is a 58 year old male with PMH of A-Fib s/p ablations, previously on Sotalol and Flecainide that presented for Rythmol initiation. Anticoagulated on Xarelto with no missed doses in the past 30 days. Started Rythmol 150mg C5sshty on 11/14. Stopped after 3 doses d/t newly reduced EF on TTE. Started PO Amiodarone 200mg BID 11/16 AM in attempt to restore SR. Underwent DCCV 11/17, unsuccessful. Pt would briefly convert to SR, then return to atypical A-Flutter RVR. Discussed with Dr. Joe Garduno. Plan to d/c home on amiodarone and BB with outpt follow-up. EF 55% in 2013. TTE now LVEF 30-35%. Severe global LV systolic dysfunction. Moderately dilated LV. Normal RV. Severely dilated LA. Moderate MR. Moderate TR. Moderate phtn. Estimated RVSP is 55 mmHg. Small pericardial effusion present, no evidence of tamponade. Moderate pleural effusion. Admits to increase BLE edema over recent weeks. CXR Acute congestive heart failure with mild bilateral effusions and basilar atelectasis. Gave one dose of IV Lasix 20mg. Transitioned to PO Lasix 20mg daily. Stopped HCTZ. Renal function stable--creatinine 1.49. CHF teaching discussed. Recommend strict I/Os, Na and fluid restriction, daily weights. Continue BB and ACEi. Discussed with Dr. Joe Garduno. Suspect tachycardia induced. Plan to recheck TTE as outpt and if EF does not recover, will then consider outpt ischemic eval (stress test vs LHC). D/C home in stable condition with outpt follow-up in 2-3 weeks. - Time Spent with Patient Total time spent providing and/or coordinating discharge services: Less than 30 minutes - Discharge Medications Prescriptions: New Amiodarone [Cordarone] 200 mg PO BID #60 tablet Furosemide [Lasix] 20 mg PO DAILY #30 tablet Continued Carvedilol [Coreg] 25 mg PO BID Lisinopril 2.5 mg PO QAM Rivaroxaban [Xarelto] 20 mg PO QPM Discontinued hydroCHLOROthiazide [Hydrochlorothiazide] 25 mg PO QAM Home Medications: Carvedilol [Coreg] 25 mg PO BID 09/27/18 [History] Lisinopril 2.5 mg PO QAM 09/27/18 [History] Rivaroxaban [Xarelto] 20 mg PO QPM 09/27/18 [History] Amiodarone [Cordarone] 200 mg PO BID #60 tablet 11/17/18 [Rx] Furosemide [Lasix] 20 mg PO DAILY #30 tablet 11/17/18 [Rx] Allergies/Adverse Reactions: Allergy/AdvReac Type Severity Reaction Status Date / Time No Known Allergies Allergy Verified 11/14/18 13:13 Date of admission: 11/14/18 10:23 Primary care physician: PCP NONE Discharging clinician: Romel Fritz Anticipated date of discharge: 11/17/18 Physical Examination Vital Signs, Last 4 Hours Pulse Resp BP Pulse Ox 11/17/18 12:45 125 14 111/83 99 11/17/18 12:30 125 14 116/76 100 Vital Signs Temp Pulse Resp BP Pulse Ox 11/17/18 13:03 125 14 120/105 100 11/17/18 12:45 125 14 111/83 99 11/17/18 12:30 125 14 116/76 100 11/17/18 08:00 97.6 F 126 20 124/97 98 11/17/18 03:49 97.9 F 124 18 115/95 95 11/17/18 01:13 98.0 F 124 18 112/84 96 11/16/18 20:52 97.4 F L 125 20 114/96 97 11/16/18 20:23 95 11/16/18 15:42 97.5 F L 120 17 103/82 99 Intake and Output 11/16/18 11/17/18 11/17/18 23:59 07:59 15:59 Intake Total 560 / 1160 0 / 0 Output Total 300 / 750 0 / 0 Balance 260 / 410 0 / 0 Intake: Oral 560 / 1160 0 / 0 Output: Urine 300 / 750 0 / 0 Other: Meal Dinner Percent of Meal Consumed 100% General: Conversant, No Apparent Distress HEENT: Atraumatic, Normocephaly, Mucus Membranes Moist Neck: No JVD, Normal carotid pulses Cardiac: Other (regularly irregular) Lungs: Normal Breath Sounds, No Wheeze, Rales, Rhonchi Neuro: Alert and responsive, No focal deficits noted Abdomen: Soft, Non-Tender Skin: No rashes noted on visualized skin Musculoskeletal: No Chest Wall Tenderness Extremities: Other (mild BLE edema) - Patient Status Disposition: Home, Self-Care Condition: Fair Functional capacity at discharge: independent ambulation Overall status at discharge: patient is progressing back to baseline - Discharge Instructions Follow Up With: NONE,PCP [Primary Care Provider] - - Diet and Activity Activity: increase activity as tolerated Diet: low salt diet, other (fluid restriction 2L)
[2018-11-17 14:13] VITALS: BP 126/88
== END 2018-11-17 15:10 | disposition home or self-care (01) ==
LOC: CDU → 2NENU 11-15 18:07
PROVIDERS: ADMIT Internal Medicine Clinical Cardiac Electrophysiology; ATTEND Internal Medicine Clinical Cardiac Electrophysiology

== ENCOUNTER 2019-01-29 19:23 | Inpatient (IN) ==
[2019-01-29] MEDS ORDERED: 0.9 % Sodium Chloride 1,000 ML IVC ONE (19:54)
--- NOTE | 2019-01-29 20:08 | Emergency Department Note ---
Disposition Clinical Impression: Hyponatremia, Hyperkalemia, Hyperglycemia, Weakness Disposition: Admitted As Inpatient Condition: Good Referrals: Angel Duran MD [Primary Care Provider] - Forms: ED Satisfaction Letter, Work/School Release Time of Disposition: 21:03 General Adult HPI - General Chief complaint: ED General Medical Stated complaint: Abnormal GC sent from PCP Time Seen by Provider: 01/29/19 19:42 Source: patient Mode of arrival: ambulatory Limitations: no limitations Nursing Notes Reviewed: Yes Vital Signs Reviewed: Yes - History of Present Illness HPI Narrative: 58-year-old male with significant past medical history of atrial fibrillation and congestive heart failure currently on Eliquis presenting to the emergency department with chief complaint of abnormal labs. According to the patient a few days ago he had a A1c completed at his primary care doctor and was told to come to the emergency department for further evaluation. At this time patient denies any new symptoms besides generalized weakness has been going on for a few months. Denies any chest pain, changes in shortness of breath, nausea or vomi ting. Pain Scale: 5 - Related Data Home Medications Medication Instructions Recorded Confirmed Carvedilol [Coreg] 25 mg PO BID 09/27/18 11/14/18 Lisinopril 2.5 mg PO QAM 09/27/18 11/14/18 Rivaroxaban [Xarelto] 20 mg PO QPM 09/27/18 11/14/18 Previous Rx's Medication Instructions Recorded Amiodarone [Cordarone] 200 mg PO BID #60 tablet 11/17/18 Furosemide [Lasix] 20 mg PO DAILY #30 tablet 11/17/18 Allergies Allergy/AdvReac Type Severity Reaction Status Date / Time No Known Allergies Allergy Verified 11/14/18 13:13 All systems ED: reviewed and negative except as stated. Constitutional: Reports: weakness. Denies: fever Eyes: Reports: as per HPI ENT ED: Reports: as per HPI Cardiovascular: Denies: chest pain Respiratory: Reports: as per HPI Gastrointestinal: Reports: as per HPI Genitourinary: Reports: as per HPI Musculoskeletal: Reports: as per HPI Integumentary: Reports: as per HPI Neurological: Reports: weakness Psychiatric: Reports: as per HPI Endocrine: Reports: as per HPI Hematological/Lymphatic: Reports: as per HPI Allergic/Immunologic: Reports: as per HPI Past Medical History - Past Medical History Attestation: Yes The following information was validated with the patient. Medical history: Reports: atrial fibrillation Surgical history: Reports: herniorrhaphy Psychiatric history: Reports: no psych history - Social History Smoking Status: Never smoker Smokeless Tobacco Status: No Alcohol use: Reports: rarely Drug use: Reports: none Physical Exam - General Limitations: no limitations General appearance: alert, in no apparent distress - Head Head exam: atraumatic, normocephalic, normal inspection - Eye Eye exam: Absent: scleral icterus - ENT ENT exam: mucous membranes dry - Neck Neck exam: Present: full ROM - Chest Chest inspection: Present: symmetric chest wall rise - Respiratory Respiratory exam: Present: normal lung sounds bilaterally. Absent: respiratory distress, wheezes - Cardiovascular Cardiovascular exam: Present: regular rate, normal rhythm, normal heart sounds - Abdominal Exam Abdominal exam: Present: soft, Non-Tender. Absent: distention, guarding, rebound - Extremities Exam Extremities exam: Present: full ROM - Neurological Exam Neurological exam: Present: alert, oriented X3 - Psychiatric Psychiatric exam: Present: normal affect, normal mood - Skin Skin exam: Present: warm, other (Well-healing wounds over the left hand. Being followed by wound clinic. Chronic.) Course Course Narrative: 58-year-old male presenting to the emergency department chief complaint of abnormal lab values. In the room he is alert and oriented 3 and hemodynamically stable. Initial triage blood pressure low but in the room systolic in the 140s. Physical exam is significant for some dry mucous membranes but otherwise benign. We will obtain DKA workup labs including VBG and urine analysis. Disposition pending laboratory analysis. Patient agrees with this plan. - Reevaluation(s) Reevaluation #1: Patient's laboratory analysis significant for a sodium of 121. Corrected for hyperglycemia still only 125. Due to patient's electrolyte abnormalities and elevated glucose will plan to admit him for further evaluation and treatment. Patient agrees with this plan. He remains alert and oriented 3 and hemodynamically stable. Vital Signs Pulse Rate 100 01/29/19 19:24 Respiratory Rate 01/29/19 19:24 Blood Pressure 84/65 01/29/19 19:24 O2 Sat by Pulse Oximetry 98 01/29/19 19:24 Temperature 98.1 F 01/29/19 20:27 Pulse Rate 100 01/29/19 20:27 Respiratory Rate 01/29/19 20:27 Blood Pressure 84/65 01/29/19 20:27 O2 Sat by Pulse Oximetry 98 01/29/19 20:27 Oxygen Delivery Oxygen Delivery Room Air Medical Decision Making - Lab Data Result diagrams: 01/29/19 19:58 01/29/19 19:58 Lab Results 01/29/19 01/29/19 01/29/19 Range/Units 19:58 19:58 19:58 WBC 6.6 (4.3-11.1) K/mcL RBC 5.07 (4.19-5.50) M/mcL Hgb 17.1 H (12.9-16.9) g/dL Hct 50.1 (37.5-50.1) % MCV 98.8 (83.0-100.0) fL MCH 33.7 H (28.0-33.3) pg MCHC 34.1 (31.6-35.5) g/dL RDW 14.0 (11.5-14.5) % Plt Count 192 (140-400) K/mcL MPV 12.3 (9.4-12.4) fL Immature Gran % 0.6 (0-4) % Seg Neutrophils % 80.8 % Lymphocytes % 13.0 % Monocytes % 4.4 % Eosinophils % 0.9 % Basophils % 0.3 % Neutrophils # 5.4 (1.6-8.9) K/mcL Lymphocytes # 0.9 (0.6-4.6) K/mcL Monocytes # 0.3 (0.0-1.3) K/mcL Eosinophils # 0.1 (0.0-0.6) K/mcL Basophils # 0.0 (0.0-0.2) K/mcL Nucleated RBCs/100 WBC 0.8 H (0) /100 WBC VBG pH (7.32-7.42) pH Units VBG pCO2 (41-51) mmHg VBG pO2 (25-50) mmHg VBG HCO3 (21-27) mEq/L Sodium 121 L (136-145) mEq/L Potassium 5.2 H (3.5-5.1) mEq/L Chloride 92 L (98-107) mEq/L Carbon Dioxide 22 L (23-29) mEq/L BUN 28 H (6-20) mg/dL Creatinine 1.46 H (0.70-1.30) mg/dL Est GFR ( Amer) > 60 (> 60) Est GFR (Non-Af Amer) 50 L (> 60) BUN/Creatinine Ratio 19 (6-26) Glucose 369 H (70-105) mg/dL Est Mean Plasma Glucose mg/dl Hemoglobin A1c ( - 5.6) % Calculated Osmolality 273 L (280-300) Calcium 9.7 (8.6-10.3) mg/dL Beta-Hydroxybutyric Acd 0.29 H (0.02-0.27) mmol/L Urine Color (Yellow) Urine Clarity (Clear) Urine pH (5.0-8.0) pH Units Ur Specific [place] (1.010-1.025) Urine Protein (Neg-Trace) mg/dL Urine Glucose (UA) (Normal) mg/dL Urine Ketones (Negative) mg/dL Urine Blood (Negative) Urine Nitrite (Negative) Urine Bilirubin (Negative) Urine Urobilinogen (Normal) mg/dL Ur Leukocyte Esterase (Negative) Urine Microscopic WBC (0-3) per hpf Ur Squamous Epith Cells (None-Few) per lpf Urine Bacteria (None-Few) per hpf Hyaline Casts (None-Few) per lpf Ur Culture Indicated? (NO) 01/29/19 01/29/19 01/29/19 Range/Units 20:06 20:13 20:22 WBC (4.3-11.1) K/mcL RBC (4.19-5.50) M/mcL Hgb (12.9-16.9) g/dL Hct (37.5-50.1) % MCV (83.0-100.0) fL MCH (28.0-33.3) pg MCHC (31.6-35.5) g/dL RDW (11.5-14.5) % Plt Count (140-400) K/mcL MPV (9.4-12.4) fL Immature Gran % (0-4) % Seg Neutrophils % % Lymphocytes % % Monocytes % % Eosinophils % % Basophils % % Neutrophils # (1.6-8.9) K/mcL Lymphocytes # (0.6-4.6) K/mcL Monocytes # (0.0-1.3) K/mcL Eosinophils # (0.0-0.6) K/mcL Basophils # (0.0-0.2) K/mcL Nucleated RBCs/100 WBC (0) /100 WBC VBG pH 7.31 L (7.32-7.42) pH Units VBG pCO2 43 (41-51) mmHg VBG pO2 43 (25-50) mmHg VBG HCO3 22 (21-27) mEq/L Sodium (136-145) mEq/L Potassium (3.5-5.1) mEq/L Chloride (98-107) mEq/L Carbon Dioxide (23-29) mEq/L BUN (6-20) mg/dL Creatinine (0.70-1.30) mg/dL Est GFR ( Amer) (> 60) Est GFR (Non-Af Amer) (> 60) BUN/Creatinine Ratio (6-26) Glucose (70-105) mg/dL Est Mean Plasma Glucose 344 mg/dl Hemoglobin A1c 13.6 H ( - 5.6) % Calculated Osmolality (280-300) Calcium (8.6-10.3) mg/dL Beta-Hydroxybutyric Acd (0.02-0.27) mmol/L Urine Color [place] A (Yellow) Urine Clarity Cloudy A (Clear) Urine pH 5.5 (5.0-8.0) pH Units Ur Specific [place] 1.027 H (1.010-1.025) Urine Protein 30 H (Neg-Trace) mg/dL Urine Glucose (UA) 250 H (Normal) mg/dL Urine Ketones Trace H (Negative) mg/dL Urine Blood Negative (Negative) Urine Nitrite Positive A (Negative) Urine Bilirubin Small H (Negative) Urine Urobilinogen 2.0 H (Normal) mg/dL Ur Leukocyte Esterase Small H (Negative) Urine Microscopic WBC 3-5 H (0-3) per hpf Ur Squamous Epith Cells Moderate H (None-Few) per lpf Urine Bacteria Few (None-Few) per hpf Hyaline Casts Many H (None-Few) per lpf Ur Culture Indicated? YES A (NO) Attestation Statement - Attestation Attestation: Wayne Slade D.O., examined this patient and my medical decision-making was reviewed with the Resident Physician. I agree with the documented findings, disposition and treatment plan as described except to the extent set forth below.
[2019-01-29 20:14] LABS: Basophils % 0.3 %; Eosinophils # 0.1 K/mcL (0.0-0.6); Eosinophils % 0.9 %; Hematocrit 50.1 % (37.5-50.1); Hemoglobin 17.1 g/dL (12.9-16.9); Immature Granulocytes % 0.6 % (0-4); Lymphocytes # 0.9 K/mcL (0.6-4.6); Mean Corpuscular HGB Conc 34.1 g/dL (31.6-35.5); Mean Corpuscular Hemoglobin 33.7 pg (28.0-33.3); Mean Corpuscular Volume 98.8 fL (83.0-100.0); Mean Platelet Volume 12.3 fL (9.4-12.4); Monocytes # 0.3 K/mcL (0.0-1.3); Monocytes % 4.4 %; Neutrophils # 5.4 K/mcL (1.6-8.9); Nucleated Red Blood Cells 0.8 /100 WBC (0); Platelet Count 192 K/mcL (140-400); Red Blood Count 5.07 M/mcL (4.19-5.50); Segmented Neutrophils % 80.8 %; White Blood Count 6.6 K/mcL (4.3-11.1)
[2019-01-29 20:22] LABS: Estimated Average Glucose 344 mg/dl
[2019-01-29 20:23] LABS: Bilirubin,Urine Small (Negative); Blood,Urine Negative (Negative); Clarity,Urine Cloudy (Clear); Glucose,Urine (UA) 250 mg/dL (Normal); Ketones,Urine Trace mg/dL (Negative); Leukocyte Esterase,Urine Small (Negative); Nitrite,Urine Positive (Negative); PH,Urine 5.5 pH Units (5.0-8.0); Protein,Urine 30 mg/dL (Neg-Trace); Specific Gravity,Urine 1.027 (1.010-1.025)
[2019-01-29 20:25] LABS: Color,Urine Amber (Yellow)
[2019-01-29 20:26] LABS: VBG HCO3 22 mEq/L (21-27); VBG PCO2 43 mmHg (41-51); VBG PH 7.31 pH Units (7.32-7.42); VBG PO2 43 mmHg (25-50)
--- NOTE | 2019-01-29 20:31 | Emergency Department Note ---
Disposition Clinical Impression: Hyponatremia, Hyperkalemia, Hyperglycemia, Weakness Disposition: Admitted As Inpatient Condition: Good Referrals: Angel Duran MD [Primary Care Provider] - Forms: ED Satisfaction Letter, Work/School Release Time of Disposition: 21:10 General Adult HPI - General Chief complaint: ED General Medical Stated complaint: Abnormal GC sent from PCP Time Seen by Provider: 01/29/19 19:42 Source: patient Mode of arrival: ambulatory Limitations: no limitations - History of Present Illness Pain Scale: 5 - Related Data Home Medications Medication Instructions Recorded Confirmed Carvedilol [Coreg] 25 mg PO BID 09/27/18 11/14/18 Lisinopril 2.5 mg PO QAM 09/27/18 11/14/18 Rivaroxaban [Xarelto] 20 mg PO QPM 09/27/18 11/14/18 Previous Rx's Medication Instructions Recorded Amiodarone [Cordarone] 200 mg PO BID #60 tablet 11/17/18 Furosemide [Lasix] 20 mg PO DAILY #30 tablet 11/17/18 Allergies Allergy/AdvReac Type Severity Reaction Status Date / Time No Known Allergies Allergy Verified 11/14/18 13:13 Past Medical History - Past Medical History Medical history: Reports: atrial fibrillation Surgical history: Reports: herniorrhaphy Psychiatric history: Reports: no psych history - Social History Smoking Status: Never smoker Smokeless Tobacco Status: No Alcohol use: Reports: rarely Drug use: Reports: none Physical Exam - General Limitations: no limitations Course Vital Signs Pulse Rate 100 01/29/19 19:24 Respiratory Rate 19 01/29/19 19:24 Blood Pressure 84/65 01/29/19 19:24 O2 Sat by Pulse Oximetry 98 01/29/19 19:24 Temperature 98.1 F 01/29/19 20:27 Pulse Rate 98 01/29/19 21:05 Respiratory Rate 16 01/29/19 21:05 Blood Pressure 130/108 01/29/19 21:05 O2 Sat by Pulse Oximetry 98 01/29/19 21:05 Oxygen Delivery Oxygen Delivery Room Air Medical Decision Making - Lab Data Result diagrams: 01/29/19 19:58 01/29/19 19:58 Lab Results 01/29/19 01/29/19 01/29/19 Range/Units 19:58 19:58 19:58 WBC 6.6 (4.3-11.1) K/mcL RBC 5.07 (4.19-5.50) M/mcL Hgb 17.1 H (12.9-16.9) g/dL Hct 50.1 (37.5-50.1) % MCV 98.8 (83.0-100.0) fL MCH 33.7 H (28.0-33.3) pg MCHC 34.1 (31.6-35.5) g/dL RDW 14.0 (11.5-14.5) % Plt Count 192 (140-400) K/mcL MPV 12.3 (9.4-12.4) fL Immature Gran % 0.6 (0-4) % Seg Neutrophils % 80.8 % Lymphocytes % 13.0 % Monocytes % 4.4 % Eosinophils % 0.9 % Basophils % 0.3 % Neutrophils # 5.4 (1.6-8.9) K/mcL Lymphocytes # 0.9 (0.6-4.6) K/mcL Monocytes # 0.3 (0.0-1.3) K/mcL Eosinophils # 0.1 (0.0-0.6) K/mcL Basophils # 0.0 (0.0-0.2) K/mcL Nucleated RBCs/100 WBC 0.8 H (0) /100 WBC VBG pH (7.32-7.42) pH Units VBG pCO2 (41-51) mmHg VBG pO2 (25-50) mmHg VBG HCO3 (21-27) mEq/L Sodium 121 L (136-145) mEq/L Potassium 5.2 H (3.5-5.1) mEq/L Chloride 92 L (98-107) mEq/L Carbon Dioxide 22 L (23-29) mEq/L BUN 28 H (6-20) mg/dL Creatinine 1.46 H (0.70-1.30) mg/dL Est GFR ( Amer) > 60 (> 60) Est GFR (Non-Af Amer) 50 L (> 60) BUN/Creatinine Ratio 19 (6-26) Glucose 369 H (70-105) mg/dL Est Mean Plasma Glucose mg/dl Hemoglobin A1c ( - 5.6) % Calculated Osmolality 273 L (280-300) Calcium 9.7 (8.6-10.3) mg/dL Beta-Hydroxybutyric Acd 0.29 H (0.02-0.27) mmol/L Urine Color (Yellow) Urine Clarity (Clear) Urine pH (5.0-8.0) pH Units Ur Specific [place] (1.010-1.025) Urine Protein (Neg-Trace) mg/dL Urine Glucose (UA) (Normal) mg/dL Urine Ketones (Negative) mg/dL Urine Blood (Negative) Urine Nitrite (Negative) Urine Bilirubin (Negative) Urine Urobilinogen (Normal) mg/dL Ur Leukocyte Esterase (Negative) Urine Microscopic WBC (0-3) per hpf Ur Squamous Epith Cells (None-Few) per lpf Urine Bacteria (None-Few) per hpf Hyaline Casts (None-Few) per lpf Ur Culture Indicated? (NO) 01/29/19 01/29/19 01/29/19 Range/Units 20:06 20:13 20:22 WBC (4.3-11.1) K/mcL RBC (4.19-5.50) M/mcL Hgb (12.9-16.9) g/dL Hct (37.5-50.1) % MCV (83.0-100.0) fL MCH (28.0-33.3) pg MCHC (31.6-35.5) g/dL RDW (11.5-14.5) % Plt Count (140-400) K/mcL MPV (9.4-12.4) fL Immature Gran % (0-4) % Seg Neutrophils % % Lymphocytes % % Monocytes % % Eosinophils % % Basophils % % Neutrophils # (1.6-8.9) K/mcL Lymphocytes # (0.6-4.6) K/mcL Monocytes # (0.0-1.3) K/mcL Eosinophils # (0.0-0.6) K/mcL Basophils # (0.0-0.2) K/mcL Nucleated RBCs/100 WBC (0) /100 WBC VBG pH 7.31 L (7.32-7.42) pH Units VBG pCO2 43 (41-51) mmHg VBG pO2 43 (25-50) mmHg VBG HCO3 22 (21-27) mEq/L Sodium (136-145) mEq/L Potassium (3.5-5.1) mEq/L Chloride (98-107) mEq/L Carbon Dioxide (23-29) mEq/L BUN (6-20) mg/dL Creatinine (0.70-1.30) mg/dL Est GFR ( Amer) (> 60) Est GFR (Non-Af Amer) (> 60) BUN/Creatinine Ratio (6-26) Glucose (70-105) mg/dL Est Mean Plasma Glucose 344 mg/dl Hemoglobin A1c 13.6 H ( - 5.6) % Calculated Osmolality (280-300) Calcium (8.6-10.3) mg/dL Beta-Hydroxybutyric Acd (0.02-0.27) mmol/L Urine Color [place] A (Yellow) Urine Clarity Cloudy A (Clear) Urine pH 5.5 (5.0-8.0) pH Units Ur Specific [place] 1.027 H (1.010-1.025) Urine Protein 30 H (Neg-Trace) mg/dL Urine Glucose (UA) 250 H (Normal) mg/dL Urine Ketones Trace H (Negative) mg/dL Urine Blood Negative (Negative) Urine Nitrite Positive A (Negative) Urine Bilirubin Small H (Negative) Urine Urobilinogen 2.0 H (Normal) mg/dL Ur Leukocyte Esterase Small H (Negative) Urine Microscopic WBC 3-5 H (0-3) per hpf Ur Squamous Epith Cells Moderate H (None-Few) per lpf Urine Bacteria Few (None-Few) per hpf Hyaline Casts Many H (None-Few) per lpf Ur Culture Indicated? YES A (NO) Attestation Statement - Attestation Attestation: IAnrulfo Slade D.O., examined this patient and my medical decision-making was reviewed with the Resident Physician. I agree with the documented findings, disposition and treatment plan as described except to the extent set forth below. 58-year-old male with a prior history of diabetes, currently not on medications as he was taken off them who presents for abnormal labs. States he was called by his private care provider because his glucose was elevated. Patient had labs drawn on Wednesday. He reports an approximate 60 pound weight loss over the last few months. He has had polyuria and polyphagia. No recent illnesses. No other complaints. General: Alert, no acute distress HENT: Normocephalic, Atraumatic Neck: No JVD Cardiovascular: Regular rate and rhythm. No appreciable murmurs Respiratory: Lungs CTAB. No wheezing/rhonchi Abdominal: Soft, non tender. No peritoneal findings Extremities: No peripheral edema Neuro: Alert, Mentating appropriately, No focal deficits Skin: Warm, Dry Plan: Check labs evaluate for potential but unlikely DKA with chemistry, VBG, ketones. Patient will be given IV fluids. Labs reviewed. No gap. He does have hyponatremia which appears new. Reviewed his medications showing he's on lasix as well. Will admit for hyponatremia and hyperglycemia.
[2019-01-29 20:35] LABS: BUN/Creatinine Ratio 19 (6-26); Blood Urea Nitrogen 28 mg/dL (6-20); Calcium 9.7 mg/dL (8.6-10.3); Carbon Dioxide 22 mEq/L (23-29); Chloride 92 mEq/L (98-107); Glucose 369 mg/dL (70-105); Osmolality,Calculated 273 (280-300); Potassium 5.2 mEq/L (3.5-5.1); Sodium 121 mEq/L (136-145); eGFR For African Americans > 60 (> 60); eGFR For Non-African Americans 50 (> 60)
[2019-01-29 20:36] LABS: Bacteria,Urine Few per hpf (None-Few); Hyaline Casts,Urine Many per lpf (None-Few); Squamous Epithelial Cell,Urine Moderate per lpf (None-Few)
[2019-01-29] MEDS ORDERED: Insulin Regular, Human 100 UNIT/ML SQ ONE (20:58)
[2019-01-29] MEDS ORDERED: Insulin LISPRO 300 UNITS/3 ML VIAL SQ ONE (21:21)
[2019-01-29] MEDS ORDERED: Acetaminophen 325 MG TABLET PO PRN (21:22)
[2019-01-29] MEDS ORDERED: Dextrose Gel 15 GM/37.5 ML TUBE PO PRN ×2 (21:24)
[2019-01-29] MEDS ORDERED: *HR* Dextrose 50 % in Water (Syg) 50 ML SYRINGE IVP PRN (21:24)
[2019-01-29] MEDS: 0.9 % Sodium Chloride 1,000 ML IVC SCH (22:48)
--- NOTE | 2019-01-29 23:01 | Internal Med History&Physical ---
Date of Encounter: 01/29/19 Time of Encounter: 22:59 Internal Medicine - H&P: HPI Chief complaint: malaise Admitted From: Home Plans for Post Hospital Care: Home History of present illness: Mario Monroy is a 58 year old man with hypertension, diabetes for which she has not been on medications and atrial fibrillation who presents emergency room after being called by an outpatient physician for abnormal labs. He went to wound care clinic visit 5 days ago for some ulcerations he has developed on his hands and lower legs and routine blood work was ordered. He was told to come in now to the emergency room with abnormal lab values. He reports having generalized weakness that has been going on over the last few months with dry mouth but otherwise denies abdominal pain, nausea, vomiting, dysuria, diarrhea, shortness of breath, chest pain and headache. He acknowledges being diagnosed with diabetes many years ago but subsequently had good control so he has not been on any medications. Repeat lab work done now showed sodium 121, potassium 5.2, chloride 92, glucose 369, ketones, pH 7.31 and an A1c of 13.6. He is admitted for further care. Vitals: Reviewed General: Well-developed male lying in bed with notable fatigue. Skin: Dry, pale skin with decreased turgor. Multiple linear cuts and excoriations with erythematous swelling, scabbing and necrotic areas on both hands and feet with some purulent ulcerations noted on the lower leg. HEENT: Dry mucous membranes. No conjunctivae pallor. Neck: No lymphadenopathy. No JVD. No carotid bruits. No palpable thyroid. Chest: Normal thoracic expansion. Normal breath sounds. Clear to auscultation. Heart: Normal S1 & S2; rhythmic. No rubs or murmurs. Abdomen: Non-distended, soft and non-tender to palpation. No peritoneal reaction . Extremities: No clubbing, cyanosis or edema. No calf tenderness. Normal distal pulses. Neurological: Awake, alert and oriented to person, place and time. No focal deficits. Psych: Affect flat. Assessment/Plan 1. Mild DKA: As evidenced by a hyperglycemic state with ketonemia and acidemia. Will administer insulin IVP and aggressive fluid resuscitation. He will need diabetic education and initiation on a treatment regimen that will be followed up on as an outpatient. 2. Electrolyte abnormalities: As evidenced by hyponatremia that does not equilibrate with his glycemia in addition to hypochloremia and mild hyperkalemia. IV saline resuscitation will be started. Check Mg/Phos as well. 3. Dehydration: Seemingly hypovolemic from poor intake, appearing significantly dry on exam coupled with his hyperglycemic state causing osmotic diuresis. His urine specific gravity correlates with the diagnosis of dehydration. Fluids started. 4. Fatigue: Secondary to hyperglycemia and dehydration. Management as indicated above. 5. Skin lesions: Unclear etiology. He denies a smoking history. Uncertain if it has to do with his hyperglycemic state or if there is a vasculitic condition occurring. Will check an YVONNE and perform arterial studies of his extremities. Wound care consult requested. Lesions do not appear infected necessitating systemic antimicrobials. 6. Atrial fibrillation: Persistent and has undergone ablative therapy in the past. Was previously on sotalol and flecainide but is now on amiodarone with carvedilol. Anticoagulated with rivaroxaban. 7. Hypertension: Controlled with Lisinopril. Past Med Surg Social Fam HX - Past Medical History Medical history: atrial fibrillation, diabetes Additional medical history: sarcoid of lungs Psychiatric history: no psych history - Past Surgical History Surgical History: herniorrhaphy Additional surgical history: ablasions x3 - Social History Smoking Status: Never smoker Smokeless Tobacco Status: No Alcohol use: rarely Drug use: none - Family History Mother Living Status: Hx Family Cardiac Disorders: Yes Hx Family Cancer: Yes (stomach) Hx Family Neurologic Disorders: Yes (dementia) Internal Medicine - H&P: Meds Carvedilol [Coreg] 25 mg PO BID 09/27/18 [History] Lisinopril 2.5 mg PO QAM 09/27/18 [History] Rivaroxaban [Xarelto] 20 mg PO QPM 09/27/18 [History] Amiodarone [Cordarone] 200 mg PO BID #60 tablet 11/17/18 [Rx] Furosemide [Lasix] 20 mg PO DAILY #30 tablet 11/17/18 [Rx] Allergy/AdvReac Type Severity Reaction Status Date / Time No Known Allergies Allergy Verified 11/14/18 13:13 All Systems PM: A 10-system review of systems was performed and is negative for pertinent fin dings except as documented above in the HPI. - Constitutional Vitals: Temp Pulse Resp BP Pulse Ox 98.1 F 107 19 117/75 97 01/29/19 22:23 01/29/19 22:23 01/29/19 22:23 01/29/19 22:23 01/29/19 22:23 Exam: . Internal Med - H&P Results - Labs CBC & Chem 7: 01/29/19 19:58 01/29/19 19:58 Labs: Short CBC 01/29/19 Range/Units 19:58 WBC 6.6 (4.3-11.1) K/mcL Hgb 17.1 H (12.9-16.9) g/dL Hct 50.1 (37.5-50.1) % Plt Count 192 (140-400) K/mcL Neutrophils # 5.4 (1.6-8.9) K/mcL BMP 01/29/19 19:58 Sodium 121 L Potassium 5.2 H Chloride 92 L Carbon Dioxide 22 L BUN 28 H Creatinine 1.46 H Glucose 369 H Calcium 9.7 Urine 01/29/19 Range/Units 20:13 Urine Color [place] A (Yellow) Urine Clarity Cloudy A (Clear) Urine pH 5.5 (5.0-8.0) pH Units Ur Specific [place] 1.027 H (1.010-1.025) Urine Protein 30 H (Neg-Trace) mg/dL Urine Glucose (UA) 250 H (Normal) mg/dL - ABG Interpretation ABG results: 01/29/19 20:22 VBG pH 7.31 L VBG pCO2 43 VBG pO2 43 VBG HCO3 22 - Time Spent With Patient Total time spent is greater than 50% in coordination of care (as documented) at patient's floor/unit and/or counseling patient:
[2019-01-30] MEDS ORDERED: *HR* Metoprolol 5 MG/5 ML VIAL IVP ONE (01:40)
[2019-01-30] MEDS ORDERED: *HR* Midazolam HCl 2 MG/2 ML VIAL IV ONE (02:58)
[2019-01-30] MEDS ORDERED: *HR* Etomidate 20 MG/10 ML AMPUL IVP ONE (02:58)
[2019-01-30] MEDS ORDERED: Aminoglycoside Consult 1 EACH MC ONE (02:58)
[2019-01-30] MEDS ORDERED: *HR* Midazolam HCl 5 MG/5 ML VIAL IVP ONE (02:58)
[2019-01-30] MEDS: 0.9 % Sodium Chloride 1,000 ML IVC SCH ×6 (03:22→22:20)
[2019-01-30 05:10] LABS: VBG HCO3 14 mEq/L (21-27); VBG PCO2 34 mmHg (41-51); VBG PH 7.23 pH Units (7.32-7.42); VBG PO2 161 mmHg (25-50)
[2019-01-30 05:30] LABS: BUN/Creatinine Ratio 19 (6-26); Blood Urea Nitrogen 28 mg/dL (6-20); Calcium 9.2 mg/dL (8.6-10.3); Carbon Dioxide 17 mEq/L (23-29); Chloride 96 mEq/L (98-107); Glucose 200 mg/dL (70-105); Magnesium 2.2 mg/dL (1.6-2.6); Osmolality,Calculated 269 (280-300); Potassium 5.1 mEq/L (3.5-5.1); Sodium 124 mEq/L (136-145); eGFR For African Americans > 60 (> 60); eGFR For Non-African Americans 50 (> 60)
[2019-01-30] MEDS: Insulin LISPRO 300 UNITS/3 ML VIAL SQ SCH ×5 (07:50→16:36)
[2019-01-30] MEDS ORDERED: D5% in Water 1,000 ML IVC PRN (08:51)
[2019-01-30] MEDS: *HR* Amiodarone 200 MG TABLET PO SCH ×2 (09:45→22:09)
[2019-01-30] MEDS ORDERED: Insulin DETEMIR 100 UNIT/ML X5UNITS SQ SCH (10:00)
[2019-01-30 10:22] LABS: Alanine Aminotransferase 44 Units/L (7-52); Albumin 3.6 g/dL (3.5-5.7); Albumin/Globulin Ratio 1.2 (1.1-2.2); Alkaline Phosphatase 80 Units/L (34-104); Aspartate Amino Transferase 26 Units/L (13-39); Bilirubin,Direct 1.2 mg/dL (0.0-0.2); Bilirubin,Total 3.2 mg/dL (0.3-1.0); C-Reactive Protein 21 mg/L (Less than 10); Globulin 3.1 g/dL (2.4-3.5); Total Protein 6.7 g/dL (6.4-8.9)
--- NOTE | 2019-01-30 12:37 | Internal Med Progress Note ---
Hospitalist Progress Note - Encounter Date of Encounter: 01/30/19 Time of Encounter: 10:30 - Subjective Interval History: Patient was seen at bedside. Denies fever, chills, rigors. Endorses generalized weakness. Denies chest pain or shortness of breath. Mentioned about the ulcerations of the fingers and the foot which have been going on for the past few months. He has been to the wound care clinic where he was found to have abnormal labs and was sent to the emergency department. - Exam Vitals: Temp Pulse Resp BP Pulse Ox 94.5 F L 121 20 110/66 92 01/30/19 11:58 01/30/19 11:03 01/30/19 11:03 01/30/19 11:03 01/30/19 11:03 Exam: General: Alert and oriented, no physical distress, able to follow commands. HEENT: No thyromegaly, no lymphadenopathy, no discharge. Eyes: No discharge. Normal conjuctiva, no icterus Respiratory: Normal vesicular breathing, no added sounds, breathing equal in both sides. CVS: Normal heart sounds, no murmurs, regular rhthm, no edema Extremities: No peripheral edema, peripheral pulses intact. Lymph nodes: No lymphadenopathy Gastrointestinal: Soft, nontender abdomen, normal abdominal sounds. No distention noted. Genitourinary: No paravertebral tenderness. Skin: Multiple ulcers and excoriations , notable mostly at the end of fingers and the both lower extremities. These have been present for the past few months. Neurological: Alert and oriented. No focal deficits. Cranial nerves II-XII intact. - Assessment and Plan (1) Diabetes mellitus Current Visit: Yes Status: Acute Assessment and Plan: Patient is currently not on any medication for the diabetes mellitus. Hemoglobin A1c of 13. Glucose levels are still elevated. Start the patient on basal bolus regimen based upon the patient weight. Continue to monitor the patient's blood glucose levels. (2) Hyperbilirubinemia Current Visit: Yes Status: Acute Assessment and Plan: LFTs were ordered which showed hyperbilirubinemia. Etiology unclear. Considering diabetes mellitus, skin ulcerations, elevated hemoglobin, suspicion of hemochromatosis. Order ultrasound of the liver. (3) Hypotension Current Visit: Yes Status: Acute Assessment and Plan: Etiology unclear. Continue the patient on IV fluids at this point. Rule out hypothyroidism and hypocortisolism. (4) Hyperglycemia Current Visit: Yes Status: Acute Assessment and Plan: Management as mentioned above. (5) Hyperkalemia Current Visit: Yes Status: Acute Assessment and Plan: Resolved. Potassium of 5.1. (6) Hyponatremia Current Visit: Yes Status: Resolved Assessment and Plan: Etiology unclear. Sodium improved to 124 Could be related to hypovolemic state. other potential etiolgoy could be hypocortisolism and hypothyroidism. (7) Weakness Current Visit: Yes Status: Acute Assessment and Plan: Could be related to underlying disease. Continue to manage. (8) Acute systolic CHF (congestive heart failure), NYHA class 2 Current Visit: No Status: Acute Assessment and Plan: Continue home dose of Coreg. Conditions to be hypovolemic. Continue IV fluids. (9) PAF (paroxysmal atrial fibrillation) Current Visit: No Status: Acute Assessment and Plan: Currently seems to be in sinus rhythm. Continue Coreg. Continue anticoagulation. (10) Skin ulceration Current Visit: Yes Status: Acute Assessment and Plan: Etiology is unclear. Has been going on for past few months. Wound care ordered. YVONNE was ordered to rule out a vasculitis. Low suspicion of peripheral arterial disease. At this point, continue to hold off the antibiotics.. - Time Spent with Patient Total time spent is greater than 50% in coordination of care (as documented) at patient's floor/unit and/or counseling patient: Internal Medicine: Result - Labs CBC & Chem 7: 01/29/19 19:58 01/30/19 04:54 Labs: Short CBC 01/29/19 Range/Units 19:58 WBC 6.6 (4.3-11.1) K/mcL Hgb 17.1 H (12.9-16.9) g/dL Hct 50.1 (37.5-50.1) % Plt Count 192 (140-400) K/mcL Neutrophils # 5.4 (1.6-8.9) K/mcL BMP 01/29/19 01/30/19 19:58 04:54 Sodium 121 L 124 L Potassium 5.2 H 5.1 Chloride 92 L 96 L Carbon Dioxide 22 L 17 L BUN 28 H 28 H Creatinine 1.46 H 1.47 H Glucose 369 H 200 H Calcium 9.7 9.2 Liver Function 01/30/19 Range/Units 04:54 Total Bilirubin 3.2 H (0.3-1.0) mg/dL Direct Bilirubin 1.2 H (0.0-0.2) mg/dL AST 26 (13-39) Units/L ALT 44 (7-52) Units/L Alkaline Phosphatase 80 (34-104) Units/L Albumin 3.6 (3.5-5.7) g/dL Urine 01/29/19 Range/Units 20:13 Urine Color Divina A (Yellow) Urine Clarity Cloudy A (Clear) Urine pH 5.5 (5.0-8.0) pH Units Ur Specific [place] 1.027 H (1.010-1.025) Urine Protein 30 H (Neg-Trace) mg/dL Urine Glucose (UA) 250 H (Normal) mg/dL Consult Discharge Plan - Plan Referrals: Angel Duran MD [Primary Care Provider] - (1) Diabetes mellitus Qualifiers: Diabetes mellitus type: type 2 Diabetes mellitus oil heaterman insulin use: without oil heaterman use Diabetes mellitus complication status: with other specified complication Qualified Code(s): E11.69 - Type 2 diabetes mellitus with other specified complication
[2019-01-30] MEDS ORDERED: 0.9 % Sodium Chloride 1,000 ML IVC ONE (17:40)
--- NOTE | 2019-01-30 17:57 | Electrocardiograph Report ---
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
[2019-01-30 18:00] LABS: ABG Base Excess -8 mEq/L (-2 to 3); ABG HCO3 14 mEq/L (21-27); ABG Oxygen Saturation 92 % (95-98); ABG PCO2 22 mmHg (35-45); ABG PH 7.43 pH Units (7.32-7.45); ABG PO2 60 mmHg (85-104); ABG TCO2 15 mEq/L (20-26)
[2019-01-30] MEDS ORDERED: Piperacillin/Tazobactam 3.375 GM in 0.9 % Sodium Chloride Mini Bag 100 ML IVPB SCH (18:00)
[2019-01-30] MEDS ORDERED: *HR* Rivaroxaban 10 MG TABLET PO SCH (18:00)
[2019-01-30] MEDS ORDERED: Perflutren Lipid Microsphere 1.3 ML in 0.9 % Sodium Chloride 8.7 ML IVP ONE (18:29)
[2019-01-30] MEDS ORDERED: 0.9 % Sodium Chloride 1,000 ML ONE (18:34)
--- NOTE | 2019-01-30 18:36 | Event Note ---
Date of Encounter: 01/30/19 Time of Encounter: 17:[address] Alexander's request to assess patient for possible transfer to ICU. By the time arrived to the patient's bedside, they called a rapid response for altered level consciousness and low blood pressure. Upon my assessment, he was responsive to sternal rub, loud verbal stimuli, and painful stimuli. Initial glucose was 67 and we gave dextrose bolus. Blood pressure was fluctuating and unable to be accurately determined at the bedside via NIBP and/or manual blood pressure. We transferred him to the ICU and his blood pressure is hovering 80s over 60s with MAP around 65. I briefly reviewed the records from his overnight admission and my discussions with Dr. Alexander. Patient denies chest pain but complains of difficulty breathing. His lungs are clear to auscultation but he has diffuse lower extremity edema. He has worsening dyspnea lying flat but improving dyspnea sitting up at 45 degree angle. He is fluid responsive and appears very preload dependent. Clinically, I am concerned about pericardial tamponade and therefore ordered a STAT echo. I ordered stat chest x-ray at the bedside in ICU and showed an enlarged cardiac silhouette with some pulmonary venous congestion but no overt CHF n my initial preliminary reading. Radiology results are pending, however. I called cardiology and requested stat echo. came to bedside and I informed her of my concerns. Exam: HR 125; BP 84/68; RR 20-38 (Og-Shafer pattern); 99% on 10 O2 NC General: C/O SOB, Og-Shafer pattern breathing; Symptoms improve with elevation HOB, worsen lying flat HEENT: + JVD; neck supple; full ROM Chest: CTA B with diminished BS bases; tachycardic; labored respirations periodically Abdomen: soft, mildly distended; + Hepatojugular reflex Ext: tense bilateral lower extremity edema Skin: ulcerations and skin breakdown along hands and feet Neuro: somnolent, arousable, appropriate to time, place, and situtation Labs reviewed from daytime today; repeat STAT labs ordered I reviewed recent old records upon arrival to ICU Recent ECHO in October noted small pericardial effusion; I ordered repeat STAT ECHO Imp/Plan: 1. Shock: suspect cardiogenc/pericardial tamponade patient is responsive to IVF boluses and appears to be preload dependent STAT ECHO ordered; I called Dr. Bahena requesting STAT read I signed out to covering fisheries officer requesting follow up on ECHO and labs Do not suspect septic shock but will trend lactate levels, culture blood, and cover with IV antibiotics Consult cardiology Patient may need intubation and mechanical ventilation tonight; discussed with and fisheries officer 2. Sepsis: Low suspicion but will culture blood, trend lactate, and continue antibiotics Fluid boluses as above 3. Diabetes: Basal insulin discontinued I treated hypoglycemia with D50. Continue monitoring glucose closely. Total 65 minutes critical care time spent assessing patient, caring for him, and coordinating care.
[2019-01-30 18:41] LABS: White Blood Count 7.7 K/mcL (4.3-11.1)
[2019-01-30 18:42] LABS: Basophils % 0.1 %; Eosinophils # 0.1 K/mcL (0.0-0.6); Eosinophils % 0.6 %; Hematocrit 45.6 % (37.5-50.1); Hemoglobin 15.4 g/dL (12.9-16.9); Immature Granulocytes % 0.6 % (0-4); Lymphocytes # 1.1 K/mcL (0.6-4.6); Lymphocytes % 14.1 %; Mean Corpuscular HGB Conc 33.8 g/dL (31.6-35.5); Mean Corpuscular Hemoglobin 34.1 pg (28.0-33.3); Mean Corpuscular Volume 100.9 fL (83.0-100.0); Mean Platelet Volume 12.3 fL (9.4-12.4); Monocytes # 0.8 K/mcL (0.0-1.3); Monocytes % 10.8 %; Neutrophils # 5.7 K/mcL (1.6-8.9); Nucleated Red Blood Cells 1.4 /100 WBC (0); Platelet Count 171 K/mcL (140-400); Red Blood Count 4.52 M/mcL (4.19-5.50); Red Cell Distribution Width 14.5 % (11.5-14.5); Segmented Neutrophils % 73.8 %
[2019-01-30 18:50] LABS: INR 3.4; Prothrombin Time 39.2 Seconds (9.4-12.1)
[2019-01-30 18:53] LABS: Activated Partial Thrombo Time 41.7 Seconds (26.0-36.0)
[2019-01-30 19:00] LABS: Alanine Aminotransferase 49 Units/L (7-52); Albumin/Globulin Ratio 1.2 (1.1-2.2); Alkaline Phosphatase 60 Units/L (34-104); Aspartate Amino Transferase 38 Units/L (13-39); BUN/Creatinine Ratio 22 (6-26); Bilirubin,Direct 1.1 mg/dL (0.0-0.2); Bilirubin,Indirect 1.3 mg/dL (0.0-1.2); Bilirubin,Total 2.4 mg/dL (0.3-1.0); Blood Urea Nitrogen 29 mg/dL (6-20); Calcium 8.7 mg/dL (8.6-10.3); Carbon Dioxide 18 mEq/L (23-29); Chloride 100 mEq/L (98-107); Globulin 2.6 g/dL (2.4-3.5); Glucose 98 mg/dL (70-105); Osmolality,Calculated 266 (280-300); Potassium 4.9 mEq/L (3.5-5.1); Sodium 125 mEq/L (136-145); Total Protein 5.6 g/dL (6.4-8.9); eGFR For African Americans > 60 (> 60); eGFR For Non-African Americans 55 (> 60)
[2019-01-30] MEDS ORDERED: Vancomycin (wt based) 1,000 MG VIAL IVPB SCH (20:00)
[2019-01-30] MEDS ORDERED: Norepinephrine 4 MG in 0.9 % Sodium Chloride 250 ML IVC SCH (20:20)
[2019-01-30] MEDS ORDERED: Lidocaine -MPF 2% 5 ML VIAL ONE (20:29)
[2019-01-30] MEDS ORDERED: Norepinephrine 8 MG in 0.9 % Sodium Chloride 250 ML IVC SCH (21:00)
[2019-01-30] MEDS ORDERED: Insulin LISPRO 300 UNITS/3 ML VIAL SQ SCH (21:00)
[2019-01-30] MEDS ORDERED: Vasopressin 40 UNIT in D5% in Water 100 ML IVC SCH (21:15)
[2019-01-30] MEDS ORDERED: EPINEPHrine 1 MG in 0.9 % Sodium Chloride 250 ML IVC SCH (21:15)
[2019-01-30 21:37] LABS: ABG Base Excess -18 mEq/L (-2 to 3); ABG HCO3 12 mEq/L (21-27); ABG Oxygen Saturation 95 % (95-98); ABG PCO2 40 mmHg (35-45); ABG PH 7.07 pH Units (7.32-7.45); ABG PO2 101 mmHg (85-104); ABG TCO2 13 mEq/L (20-26)
[2019-01-30] MEDS ORDERED: Sodium Bicarbonate 150 MEQ in D5% in Water 1,000 ML IVC SCH (21:45)
--- NOTE | 2019-01-30 21:53 | Procedure Note ---
Date of procedure: 01/30/19 Pre-op diagnosis: acute respiratory failure Post-op diagnosis: same Procedure: Date: <01/30/19> Time: <20:30> Indication: Acute Respiratory Distress Resident: <Nik Lewis> Attending: <Steven> The patient suffered a sudden decline in mental status while preparing for insertion of a femoral central line, and required intubation. The patient was placed in a flat position head of bed elevated to approx 20 degrees. Sedation was obtained using <Versed 7 mg>, and additionally with <Etomidate 20mg>. The patient was ventilated using an ambu bag. The <MAC 4 BLADE> was used and inserted into the oropharynx at which time there was a Grade 1 view of the vocal cords. An 8-azeri endotracheal tube was inserted and visualized going through the vocal cords. The stylette was removed. Colorimetric change was visualized on the CO2 meter. Breath sounds were heard in both lung foster equally. The endotracheal tube was placed at 23 cm, measured at the teeth. <Dr Harris> was present for the entire procedure. A chest x-ray was ordered to assess for pneumothorax and verify endotracheal tube placement. Estimated Blood Loss: <0cc> The patient tolerated the procedure well and there were no complications. Anesthesia: other Was there an certified nursing assistant present: Yes Building Carpenter: Laly Harris Estimated blood loss (cc): 0 Specimen: none Pathology: none sent Condition: critical Disposition: ICU
--- NOTE | 2019-01-30 22:02 | Procedure Note ---
Date of procedure: 01/30/19 Pre-op diagnosis: Cardiac arrest Post-op diagnosis: same Procedure: INDICATION: Shock PROCEDURE PACKAGE WINDER: Mckinley Harris MD Ultrasound Used: No CONSENT: Consent was obtained from _ prior to the procedure. Indications, risks, and benefits were explained at length. PROCEDURE SUMMARY: A time out was performed. My hands were washed immediately prior to the procedure. I wore a surgical cap, mask with protective eyewear, sterile gown and sterile gloves throughout the procedure. The RIGHT inguinal region was prepped using chlorhexidine scrub and draped in sterile fashion using a full drape. The femoral pulse was identified. Anesthesia was achieved using 1% lidocaine. Palpating the femoral pulse throughout the procedure, the introducer needle was inserted medial to the femoral artery, inferior to the inguinal crease and into the femoral vein. Venous blood was withdrawn. The syringe was removed and a guidewire was advanced into the introducer needle. A small incision was made at the skin surface with a scalpel and the introducer needle was exchanged for a dilator over the guidewire. After appropriate dilation was obtained, the dilator was exchanged over the wire for a central venous catheter. The wire was removed and the catheter was sutured in place at 20cm. A sterile shield was placed over the catheter at the insertion site. At time of procedure completion, all ports aspirated and flushed properly. Estimated blood loss is 10cc. Anesthesia: local Was there an botany laboratory assistant present: No Estimated blood loss (cc): 10 Specimen: No Pathology: none sent Condition: critical Disposition: ICU
--- NOTE | 2019-01-30 22:29 | Event Note ---
Date of Encounter: 01/30/19 Time of Encounter: 22:28 After receiving sign out on the patients critical state upon transfer to the ICU from the rapid response called during the day shift, I ordered 2 units of FFP to reverse the INR elevation noted in preparation for a central venous catheter placement for vasopressor support as he was notably hypotensive. In the interim the patient was mentating adequately and able to speak to me in the presence of his . He confirmed having some trouble breathing so I explained that he will likely need intubation momentarily as he would likely fatigue and therefore we will prepare for such. We commenced with a femoral vein catheterization attempt without laying him supine however before needle insertion, the patient clenched his chest and said he couldnt breathe. He then passed out and we were unable to feel a pulse at which time zander bardales was called and ACLS protocol started. Intubation was performed by my resident and I placed the femoral line to start norepinephrine. He was noted to have V-tach transiently; 300mg amiodarone bpolus was given followed by a continuous infusion. Upon stabilization, he went on to PEA arrest on 2 more occasions requiring ACLS. I spoke with his who acknowledged that he has been doing poorly for the past 7 months and is aware of his failing heart, noting that his EF was 35% previously and today is now in the 20s. She also stated that she and the patient had previously had discussions of such a scenario and would not want prolonged and futile lifesaving measures. She expressed her desire for the patient to be made DNR-CCA subsequently with the understanding that his prognosis was poor. DWIGHT JACKSON.
[2019-01-30] MEDS ORDERED: FentaNYL (PF) 1,000 MCG in 0.9 % Sodium Chloride 80 ML IVC SCH (23:15)
[2019-01-30 23:16] LABS: Basophils % 0.2 %; Eosinophils # 0.1 K/mcL (0.0-0.6); Eosinophils % 0.5 %; Hematocrit 45.5 % (37.5-50.1); Hemoglobin 15.1 g/dL (12.9-16.9); Immature Granulocytes % 1.5 % (0-4); Lymphocytes # 0.6 K/mcL (0.6-4.6); Lymphocytes % 6.5 %; Mean Corpuscular HGB Conc 33.2 g/dL (31.6-35.5); Mean Corpuscular Hemoglobin 34.2 pg (28.0-33.3); Mean Corpuscular Volume 102.9 fL (83.0-100.0); Mean Platelet Volume 11.8 fL (9.4-12.4); Monocytes # 0.3 K/mcL (0.0-1.3); Monocytes % 2.9 %; Neutrophils # 8.4 K/mcL (1.6-8.9); Nucleated Red Blood Cells 1.4 /100 WBC (0); Platelet Count 154 K/mcL (140-400); Red Blood Count 4.42 M/mcL (4.19-5.50); Red Cell Distribution Width 14.3 % (11.5-14.5); Segmented Neutrophils % 88.4 %; White Blood Count 9.5 K/mcL (4.3-11.1)
[2019-01-30 23:23] VITALS: BP 116/93
[2019-01-30 23:33] LABS: Albumin 2.8 g/dL (3.5-5.7); Albumin/Globulin Ratio 1.1 (1.1-2.2); Bilirubin,Direct 1.2 mg/dL (0.0-0.2); Bilirubin,Indirect 1.6 mg/dL (0.0-1.2); Bilirubin,Total 2.8 mg/dL (0.3-1.0); Calcium 7.8 mg/dL (8.6-10.3); Globulin 2.5 g/dL (2.4-3.5); Total Protein 5.3 g/dL (6.4-8.9)
[2019-01-30 23:45] LABS: INR 3.7; Prothrombin Time 42.1 Seconds (9.4-12.1)
[2019-01-30 23:48] LABS: Activated Partial Thrombo Time 35.3 Seconds (26.0-36.0)
[2019-01-31] MEDS ORDERED: *HR* LORazepam 2 MG/ML VIAL IVP PRN (00:05)
[2019-01-31] MEDS ORDERED: Morphine Sulfate Oral CONC 10 MG/0.5 ML ORAL.SYG SL PRN (00:19)
--- NOTE | 2019-01-31 01:12 | Event Note ---
Date of Encounter: 01/31/19 Time of Encounter: 01:12 At 2355hrs the patients , son and daughter decided to withdraw care stating they no longer wanted the patient on prolonged futile life-sustaining measures as in accordance with the patients wishes. In their presence, vasopressors were discontinued at 0010hrs and he was placed on a fentanyl drip for comfort. At 0020hrs he was terminally extubated. At 0032 hours the fentanyl infusion was discontinued and at 0036hrs he was in asystole. On my examination his pupils were fixed and dilated. He had no heart sounds on cardiac auscultation and no spontaneous breathing movements. He was pronounced at 0036hrs with his family members at bedside who were present throughout. DWIGHT JACKSON.
--- NOTE | 2019-01-31 03:42 | Death Note ---
Pronouncement Note - Date and Time of Date of : 01/31/19 Time of : 00:36 - PCOD Preliminary cause of : Cardiac arrest - Additional Data Confirmation of : no pulse, no respirations, no heart sounds, pupils fixed and dilated Family: at bedside Attending physician: Keiko Alexander Was code activated?: No Autopsy requested?: No disability examiner notified?: Yes Organ bank notified?: Yes Advance directives: Yes
--- NOTE | 2019-01-31 03:44 | Death Note ---
Discharge Sum: Summary - Date and Time Date of admission: 01/30/19 19:16 Date of : 01/31/19 Time of : 00:36 - Summary Details: At 2355hrs the patients , son and daughter decided to withdraw care stating they no longer wanted the patient on prolonged futile life-sustaining measures as in accordance with the patients wishes. In their presence, vasopressors were discontinued at 0010hrs and he was placed on a fentanyl drip for comfort. At 0020hrs he was terminally extubated. At 0032 hours the fentanyl infusion was discontinued and at 0036hrs he was in asystole. On my examination his pupils were fixed and dilated. He had no heart sounds on cardiac auscultation and no spontaneous breathing movements. He was pronounced at 0036hrs with his family members at bedside who were present throughout. - Additional Data Confirmation of as documented by pronouncing clinician: no pulse, no respirations, no heart sounds, pupils fixed and dilated Family: at bedside Attending physician: Keiko Alexander Was code activated?: No Autopsy requested?: No yarn examiner skeins notified?: Yes Organ bank notified?: Yes Advance directives: Yes Hospice patient?: No Discharge Sum: Diag - PCOD Probable Cause of : Cardiac arrest Discharge Sum: Prov - Provider Primary care physician: Angel Duran MD Admitting clinician: Laly Harris Attending physician on admission: Keiko Alexander Consults: 01/29/19 21:24 Consult to Diabetes Education [CONS] Routine Comment: Reason for Consult: new initiation of diabetes treatment 01/29/19 21:27 Consult to Wound Care [CONS] Routine Reason for Consult: Ulcers distal extremities of unclear etiology Call Completed: No 01/30/19 19:22 Consult to Cardiology [CONS] Routine Comment: Consulting Provider: Cardiology Cheri Reason for Consult: chronic CHF Call Completed: Yes Pronouncing clinician: Laly Harris
--- NOTE | 2019-01-31 11:08 | Electrocardiograph Report ---
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
--- NOTE | 2019-01-31 11:33 | Electrocardiograph Report ---
[address] [place], [place] [address] Test Date: 2019-01-30 Pat Name: Mario Monroy Department: 109 Room: [facility] Gender: M Administrator Health Care Facility: : 1960 Requested By: Gama Perez Order Number: [id number] Reading MD: Porter Adkins Measurements Intervals [place] Rate: 123 P: SC: 0 QRS: -10 QRSD: 85 T: -18 QT: 324 QTc: 397 Interpretive Statements ATRIAL FLUTTER/TACHYCARDIA WITH RAPID VENTRICULAR RESPONSE LOW QRS VOLTAGE IN EXTREMITY LEADS Poor R wave progression Electronically Signed On 01-31-2019 11:31:04 EDT by Porter Adkins
[2019-02-01 09:49] LABS: ANA IgG by ELISA NONE DETECTED (None Detected)
== END 2019-01-31 02:59 | disposition expired | DRG 637 ==
LOC: EMEROOARM 19:23 → 2ANU 19:23 → SUATTDRO 21:10 → 2ANU 21:58 → ICNU 01-30 18:05
PROVIDERS: ADMIT Internal Medicine; ATTEND Internal Medicine